=== PATIENT | female | born 1955 | race Caucasian/White ===

== ENCOUNTER 2019-10-22 02:04 | Outpatient (RCR) | payer OTHER, SELFPAY ==
[2019-10-08 07:37] LABS: Abs Immature Grans 0.24 k/cumm (0.0-0.09); Absolute Basophil Count 0.01 k/cumm (0.0-0.2); Absolute Monocyte Count 1.51 k/cumm (0.11-0.7); Absolute Neutrophil Count 11.18 k/cumm (1.2-6.7); Basophils % 0.1; Eosinophils % 0.5; HCT 32.1 % (36.0-46.0); HGB 10.4 g/dL (12.0-15.5); Immature Grans % 1.6 %; Lymphocytes % 12.9; Mean Corp. HGB Concentration 32.4 g/dL (32.0-36.0); Mean Corpuscular Hemoglobin 28.3 pg (27.0-33.0); Mean Corpuscular Volume 87.2 fL (80-95); Mean Platelet Volume 9.3 fL (8.0-11.0); Monocytes % 10.1; Neutrophils % 74.8; Platelet Count 451 x1000/uL (130-400); RBC 3.68 m/cumm (4.00-5.20); RBC Distribution Width 14.9 % (11.7-14.6); White Blood Cell Count 14.94 k/cumm (4.4-10.8)
[2019-10-08 07:53] LABS: ALT 29 U/L (14-59); AST 38 U/L (15-37); Absolute Eosinophil Count 0.07 k/cumm (0.0-0.7); Absolute Lymphocyte Count 1.93 k/cumm (1.2-3.4); Albumin 2.8 g/dL (3.4-5.0); Alkaline Phosphatase 137 U/L (46-116); Anion Gap 7.9 mmol/L (3-11); BUN 9 mg/dL (7-18); Bilirubin, Total 0.4 mg/dL (0.2-1.0); CO2 29.1 mmol/L (21.0-32.0); CREATININE 0.72 mg/dL (0.55-1.02); Calcium 8.6 mg/dL (8.5-10.1); Chloride 96 mmol/L (98-107); Glucose 100 mg/dL (74-106); LDH 961 U/L (81-234); Potassium 3.4 mmol/L (3.5-5.1); Sodium 133 mmol/L (136-145); Total Protein 6.5 g/dL (6.4-8.2)
[2019-10-08 08:02] LABS: Diff Comment Agrees w/ Instrument; Polychromasia Present
[2019-10-08] MEDS: Normal Saline Flush 10 ML SYR 30 ML IVP (09:03)
[2019-10-22] MEDS: Heparin 500 UNITS/5 ML SYRINGE IV (09:32)
[2019-10-22] MEDS: Normal Saline Flush 10 ML SYR 30 ML IVP (09:32)
[2019-10-22 09:49] LABS: ALT 14 U/L (14-59); AST 11 U/L (15-37); Albumin 3.1 g/dL (3.4-5.0); Alkaline Phosphatase 173 U/L (46-116); Anion Gap 10.9 mmol/L (3-11); BUN 5 mg/dL (7-18); Bilirubin, Total 0.2 mg/dL (0.2-1.0); CO2 26.1 mmol/L (21.0-32.0); CREATININE 0.61 mg/dL (0.55-1.02); Calcium 8.8 mg/dL (8.5-10.1); Chloride 101 mmol/L (98-107); Glucose 116 mg/dL (74-106); LDH 219 U/L (81-234); Potassium 3.4 mmol/L (3.5-5.1); Sodium 138 mmol/L (136-145); Total Protein 6.3 g/dL (6.4-8.2)
[2019-10-22 09:53] LABS: Abs Immature Grans 1.91 k/cumm (0.0-0.09); HCT 29.2 % (36.0-46.0); HGB 9.4 g/dL (12.0-15.5); Mean Corp. HGB Concentration 32.2 g/dL (32.0-36.0); Mean Corpuscular Hemoglobin 28.4 pg (27.0-33.0); Mean Corpuscular Volume 88.2 fL (80-95); Mean Platelet Volume 10.4 fL (8.0-11.0); Platelet Count 316 x1000/uL (130-400); RBC 3.31 m/cumm (4.00-5.20); White Blood Cell Count 19.23 k/cumm (4.4-10.8)
[2019-10-22 10:09] LABS: Absolute Lymphocyte Count 1.92 k/cumm (1.2-3.4); Absolute Neutrophil Count 15.38 k/cumm (1.2-6.7)
[2019-10-22 10:10] LABS: Absolute Monocyte Count 1.35 k/cumm (0.11-0.7); Anisocytosis 2+; Diff Comment Manual Differential; Nucleated RBC 1 /100WBC; Polychromasia Present
[2019-10-22 10:11] LABS: Poikilocytes 1+
== END 2019-10-27 23:59 | disposition home or self-care (01) ==
LOC: INF 02:04
PROVIDERS: PCP Registered Nurse; Visit Provider Internal Medicine Hematology & Oncology
DX: C82.00 Follicular lymphoma grade I, unspecified site (principal); Z45.2 Encounter for adjustment and management of vascular access device
CPT/HCPCS: 36591; 80053; 83615; 85025

== ENCOUNTER 2019-11-18 02:50 | Outpatient (RCR) | payer OTHER, SELFPAY ==
[2019-10-28] MEDS: Normal Saline Flush 10 ML SYR IVP (07:29)
[2019-10-28 07:39] LABS: Abs Immature Grans 0.77 k/cumm (0.0-0.09); Absolute Basophil Count 0.06 k/cumm (0.0-0.2); Absolute Monocyte Count 1.28 k/cumm (0.11-0.7); Absolute Neutrophil Count 14.55 k/cumm (1.2-6.7); Basophils % 0.3; Eosinophils % 0.1; HCT 30.7 % (36.0-46.0); HGB 9.6 g/dL (12.0-15.5); Immature Grans % 4.2 %; Lymphocytes % 9.8; Mean Corp. HGB Concentration 31.3 g/dL (32.0-36.0); Mean Corpuscular Hemoglobin 28.2 pg (27.0-33.0); Mean Platelet Volume 9.3 fL (8.0-11.0); Monocytes % 6.9; Neutrophils % 78.7; Platelet Count 411 x1000/uL (130-400); RBC 3.41 m/cumm (4.00-5.20); RBC Distribution Width 17.7 % (11.7-14.6); White Blood Cell Count 18.49 k/cumm (4.4-10.8)
[2019-10-28 07:50] LABS: ALT 15 U/L (14-59); AST 13 U/L (15-37); Albumin 3.2 g/dL (3.4-5.0); Alkaline Phosphatase 153 U/L (46-116); Anion Gap 8.6 mmol/L (3-11); BUN 6 mg/dL (7-18); Bilirubin, Total 0.3 mg/dL (0.2-1.0); CO2 28.4 mmol/L (21.0-32.0); CREATININE 0.65 mg/dL (0.55-1.02); Calcium 8.8 mg/dL (8.5-10.1); Chloride 101 mmol/L (98-107); Glucose 111 mg/dL (74-106); LDH 174 U/L (81-234); Potassium 3.9 mmol/L (3.5-5.1); Sodium 138 mmol/L (136-145); Total Protein 6.6 g/dL (6.4-8.2)
[2019-10-28 07:52] LABS: Absolute Eosinophil Count 0.02 k/cumm (0.0-0.7); Absolute Lymphocyte Count 1.81 k/cumm (1.2-3.4)
[2019-10-28 07:59] LABS: Anisocytosis 1+; Diff Comment Agrees w/ Instrument
[2019-11-18 08:06] LABS: Abs Immature Grans 0.04 k/cumm (0.0-0.09); Absolute Basophil Count 0.03 k/cumm (0.0-0.2); Absolute Eosinophil Count 0.04 k/cumm (0.0-0.7); Absolute Lymphocyte Count 0.91 k/cumm (1.2-3.4); Absolute Monocyte Count 0.85 k/cumm (0.11-0.7); Absolute Neutrophil Count 8.16 k/cumm (1.2-6.7); Basophils % 0.3; Eosinophils % 0.4; HGB 8.9 g/dL (12.0-15.5); Immature Grans % 0.4 %; Lymphocytes % 9.1; Mean Corpuscular Hemoglobin 30.1 pg (27.0-33.0); Mean Corpuscular Volume 91.2 fL (80-95); Mean Platelet Volume 9.4 fL (8.0-11.0); Monocytes % 8.5; Neutrophils % 81.3; Platelet Count 327 x1000/uL (130-400); RBC 2.96 m/cumm (4.00-5.20); RBC Distribution Width 20.5 % (11.7-14.6); White Blood Cell Count 10.03 k/cumm (4.4-10.8)
[2019-11-18 08:37] LABS: ALT 28 U/L (14-59); AST 14 U/L (15-37); Albumin 3.4 g/dL (3.4-5.0); Alkaline Phosphatase 122 U/L (46-116); Anion Gap 9.1 mmol/L (3-11); BUN 11 mg/dL (7-18); Bilirubin, Total 0.4 mg/dL (0.2-1.0); CO2 25.9 mmol/L (21.0-32.0); CREATININE 0.69 mg/dL (0.55-1.02); Chloride 97 mmol/L (98-107); Glucose 106 mg/dL (74-106); LDH 145 U/L (81-234); Potassium 4.4 mmol/L (3.5-5.1); Sodium 132 mmol/L (136-145); Total Protein 6.7 g/dL (6.4-8.2)
[2019-11-18] MEDS: Normal Saline Flush 10 ML SYR IVP (09:03)
== END 2019-11-27 23:59 | disposition home or self-care (01) ==
LOC: INF 02:50
PROVIDERS: PCP Registered Nurse; Visit Provider Internal Medicine Hematology & Oncology
DX: C82.00 Follicular lymphoma grade I, unspecified site (principal); Z45.2 Encounter for adjustment and management of vascular access device
CPT/HCPCS: 36591; 80053; 83615; 85025

== ENCOUNTER 2019-12-09 02:27 | Outpatient (RCR) | payer OTHER, SELFPAY ==
[2019-12-09] MEDS: Normal Saline Flush 10 ML SYR IVP (07:10)
[2019-12-09 07:32] LABS: Abs Immature Grans 0.16 10^3/uL (0.0-0.06); Basophils % 0.5; Eosinophils % 0.1; HCT 28.5 % (36.0-46.0); HGB 9.1 g/dL (11.2-15.7); Lymphocytes % 7.7; MCH 31.1 pg (27.0-33.0); MCHC 31.9 % (32.0-36.0); MCV 97.3 fL (80-95); MPV 9.3 fL (8.0-11.0); Monocytes % 9.7; Nucleated RBC 0 %; Platelet Count 270 10^3/uL (130-400); RBC 2.93 10^6/uL (3.93-5.22); RDW 22.2 % (11.7-14.6); RDW-SD 78.3 fL; WBC 15.52 10^3/uL (4.4-10.8)
[2019-12-09 07:51] LABS: ALT 19 U/L (14-59); AST 19 U/L (15-37); Albumin 3.3 g/dL (3.4-5.0); Alkaline Phosphatase 108 U/L (46-116); Anion Gap 6.6 mmol/L (3-11); BUN 6 mg/dL (7-18); Bilirubin, Total 0.3 mg/dL (0.2-1.0); CO2 27.4 mmol/L (21.0-32.0); CREATININE 0.57 mg/dL (0.55-1.02); Calcium 8.9 mg/dL (8.5-10.1); Chloride 99 mmol/L (98-107); Glucose 107 mg/dL (74-106); LDH 137 U/L (81-234); Sodium 133 mmol/L (136-145); Total Protein 6.6 g/dL (6.4-8.2)
[2019-12-09 07:55] LABS: Absolute Basophil Count 0.08 10^3/uL (0.0-0.2); Absolute Eosinophil Count 0.02 10^3/uL (0.0-0.7); Absolute Monocyte Count 1.51 10^3/uL (0.1-0.8); Absolute Neutrophil Count 12.57 10^3/uL (1.2-6.7)
[2019-12-09 08:00] LABS: Diff Comment RBC Morph Reviewed
[2019-12-09 08:01] LABS: Anisocytosis 2+; Hypochromasia 1+; Polychromasia Present
[2019-12-09 08:02] LABS: Poikilocytes 2+
== END 2019-12-28 23:59 | disposition home or self-care (01) ==
LOC: INF 02:27
PROVIDERS: PCP Registered Nurse; Visit Provider Internal Medicine Hematology & Oncology
DX: C82.08 Follicular lymphoma grade I, lymph nodes of multiple sites (principal); Z45.2 Encounter for adjustment and management of vascular access device
CPT/HCPCS: 36591; 80053; 83615; 85025

== ENCOUNTER 2020-01-20 07:30 | Outpatient (RCR) | payer OTHER, SELFPAY ==
[2019-12-30] MEDS: Normal Saline Flush 10 ML SYR IVP (07:22)
[2019-12-30 07:38] LABS: Absolute Basophil Count 0.04 10^3/uL (0.0-0.2); Absolute Eosinophil Count 0.02 10^3/uL (0.0-0.7); Absolute Lymphocyte Count 0.53 10^3/uL (1.2-3.4); Absolute Monocyte Count 0.68 10^3/uL (0.1-0.8); Absolute Neutrophil Count 4.76 10^3/uL (1.2-6.7); Basophils % 0.7; Eosinophils % 0.3; HCT 30.5 % (36.0-46.0); HGB 10.2 g/dL (11.2-15.7); Immature Grans % 1.6; Lymphocytes % 8.6; MCH 31.7 pg (27.0-33.0); MCHC 33.4 % (32.0-36.0); MCV 94.7 fL (80-95); MPV 9.8 fL (8.0-11.0); Monocytes % 11.1; Neutrophils % 77.7; Nucleated RBC 0 %; RBC 3.22 10^6/uL (3.93-5.22); RDW-SD 64.8 fL; WBC 6.13 10^3/uL (4.4-10.8)
[2019-12-30 07:41] LABS: ALT 138 U/L (14-59); AST 59 U/L (15-37); Albumin 3.4 g/dL (3.4-5.0); Alkaline Phosphatase 126 U/L (46-116); Anion Gap 8.2 mmol/L (3-11); BUN 8 mg/dL (7-18); Bilirubin, Total 0.4 mg/dL (0.2-1.0); CO2 27.8 mmol/L (21.0-32.0); CREATININE 0.59 mg/dL (0.55-1.02); Chloride 102 mmol/L (98-107); Glucose 97 mg/dL (74-106); LDH 143 U/L (81-234); Potassium 4.1 mmol/L (3.5-5.1); Sodium 138 mmol/L (136-145); Total Protein 6.3 g/dL (6.4-8.2)
[2019-12-30 07:51] LABS: Anisocytosis 1+; Diff Comment PLT Morph Reviewed; Platelet Count 129 10^3/uL (130-400)
[2020-01-20] MEDS: Normal Saline Flush 10 ML SYR IVP (07:15)
[2020-01-20 07:43] LABS: Abs Immature Grans 0.26 10^3/uL (0.0-0.06); Absolute Eosinophil Count 0.02 10^3/uL (0.0-0.7); Absolute Lymphocyte Count 1.54 10^3/uL (1.2-3.4); Absolute Monocyte Count 1.38 10^3/uL (0.1-0.8); Absolute Neutrophil Count 14.18 10^3/uL (1.2-6.7); Basophils % 0.5; Eosinophils % 0.1; HCT 31.8 % (36.0-46.0); HGB 10.5 g/dL (11.2-15.7); Immature Grans % 1.5; Lymphocytes % 8.8; MCH 32.9 pg (27.0-33.0); MCV 99.7 fL (80-95); MPV 10.1 fL (8.0-11.0); Monocytes % 7.9; Neutrophils % 81.2; Nucleated RBC 0 %; Platelet Count 181 10^3/uL (130-400); RBC 3.19 10^6/uL (3.93-5.22); RDW 17.4 % (11.7-14.6); RDW-SD 64.2 fL; WBC 17.46 10^3/uL (4.4-10.8)
[2020-01-20 07:44] LABS: Absolute Basophil Count 0.09 10^3/uL (0.0-0.2)
[2020-01-20 08:15] LABS: ALT 22 U/L (14-59); AST 19 U/L (15-37); Albumin 3.6 g/dL (3.4-5.0); Alkaline Phosphatase 130 U/L (46-116); Anion Gap 7.1 mmol/L (3-11); BUN 9 mg/dL (7-18); Bilirubin, Total 0.4 mg/dL (0.2-1.0); CO2 27.9 mmol/L (21.0-32.0); CREATININE 0.63 mg/dL (0.55-1.02); Chloride 100 mmol/L (98-107); Glucose 108 mg/dL (74-106); LDH 163 U/L (81-234); Sodium 135 mmol/L (136-145); Total Protein 6.8 g/dL (6.4-8.2); Uric Acid 5.2 mg/dL (2.6-6.0)
== END 2020-01-27 23:59 | disposition home or self-care (01) ==
LOC: INF 07:30
PROVIDERS: PCP Registered Nurse; Visit Provider Internal Medicine Hematology & Oncology
DX: C82.08 Follicular lymphoma grade I, lymph nodes of multiple sites (principal); Z45.2 Encounter for adjustment and management of vascular access device
CPT/HCPCS: 36591; 80053; 83615; 84550; 85025

== ENCOUNTER 2020-04-07 11:58 | Outpatient (CLI) | payer OTHER, SELFPAY ==
--- NOTE | 2020-04-07 | DI.CT_ITS ---
EXAM: CT ABD AORTA CTA W RUNOFF CLINICAL HISTORY: PERIPHERAL ARTERY DISEASE I73.9 TECHNIQUE: Axial CT angiography was performed with multi-slice acquisition and multi-planar and/or 3 D reconstructions. COMPARISON: No exams were available for comparison FINDINGS: CT angiography of the abdomen and pelvis was performed with additional ???runoff??? images of the low er extremities bilaterally. Images obtained through the lung bases are unremarkable. Visualized pulmonary arterial circulation a ppears normal. Thoracic aorta is of normal diameter throughout. No mass or adenopathy of the visual ized portions of the mediastinum. The liver and spleen are unremarkable in appearance as is the pancreas. Gallbladder and bile ducts a re CT normal. No focal renal abnormality. No hydronephrosis or nephrolithiasis. Unremarkable appea eduin of the adrenals. No focal bowel pathology. Unremarkable appearance of button reclaimer structures. No significant abdominal wall hernia. No significant abdominal or pelvic adenopathy. Abdominal aorta is of normal diameter throughout. There is diffuse heavily calcified plaque of the a bdominal aorta. The origins of the celiac trunk, superior mesenteric artery, and renal arteries bila terally show significant calcification but there does not appear to be a stenosis of greater than 50 percent of the luminal diameter of these vessels. The inferior mesenteric artery is intact. The common femoral arteries bilaterally are heavily calcified. There is a greater than 50 percent bi lateral luminal diameter stenosis of the common iliac arteries. The external iliac arteries bilaterally show dense atheromatous plaque and greater than 50 percent estefany carlton diameter stenosis over much of their course bilaterally. The distal left external iliac artery shows greater than 90 percent luminal diameter stenosis. There are bilateral occlusions of the prox imal superficial femoral arteries. Profundus femora arteries bilaterally are small but patent. Supe rficial femoral arteries are occluded to the level of the distal SFA bilaterally. There is reconstit ution of tiny popliteal arteries bilaterally. There is severe atheromatous change with multiple sten oses of greater than 90 percent luminal diameter of all 3 lower leg arteries bilaterally. 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 RADIATION DOSE DELIVERED: 737.18mGy.cm Total DLP
[2020-04-07] MEDS: Omnipaque 350 MG/ML 100 ML BTL IV (14:14)
[2020-04-07] MEDS: Normal Saline - Diluent 50 ML VIAL IV (14:15)
[2020-04-07] MEDS: Omnipaque 350 MG/ML 50 ML BTL IV (14:16)
== END 2020-04-07 12:18 ==
PROVIDERS: PCP Registered Nurse; Visit Provider Surgery
DX: I73.9 Peripheral vascular disease, unspecified (principal); I77.1 Stricture of artery
CPT/HCPCS: 75635; J3490; Q9967

== ENCOUNTER 2020-04-07 12:13 | Outpatient (RCR) | payer OTHER, SELFPAY ==
[2020-04-07] MEDS: Heparin 500 UNITS/5 ML SYRINGE IVP (12:10)
[2020-04-07] MEDS: Normal Saline Flush 10 ML SYR 30 ML IVP (12:10)
[2020-04-07 12:57] LABS: CREATININE 0.52 mg/dL (0.55-1.02)
== END 2020-04-28 23:59 | disposition home or self-care (01) ==
LOC: INF 12:13
PROVIDERS: Surgery; PCP Registered Nurse; Visit Provider Internal Medicine Hematology & Oncology
DX: I73.9 Peripheral vascular disease, unspecified (principal); Z45.2 Encounter for adjustment and management of vascular access device
CPT/HCPCS: 36591; 82565

== ENCOUNTER 2020-05-11 04:09 | Outpatient (RCR) | payer OTHER, SELFPAY | END 2020-05-29 23:59 | disposition home or self-care (01) | LOC: INF 04:09 | PROVIDERS: PCP Registered Nurse; Visit Provider Internal Medicine Hematology & Oncology | DX: Z53.9 Procedure and treatment not carried out, unspecified reason (principal) ==

== ENCOUNTER 2020-06-29 08:52 | Outpatient (RCR) | payer OTHER, SELFPAY ==
--- OUTSIDE RECORDS SUMMARY | 2020-06-29 08:55 | XMS_ITS ---
:1955 Author Care Team Providers Name Role Phone HEATH LEON MD General Surgeon [phone] BARBI SMART NP Primary Care Provider [phone] TRAVIS WOODALL MD Christmas Tree Grader [phone] Allergies Code Code System Name Reaction Severity Status Onset 776441 RxNorm Fosamax ? ? Active ? [id number] RxNorm Plavix Rash ? Active ? Notes: No seafood allergy. No co ntrast allergy. 03/10/20 verbal review with patient Medications Name Status Start Date Stop Date ? ? acyclovir 400 mg tablet Active ? Not avai lable allopurinol 300 mg tablet Completed ? 2019 Take 1 tablet every day by oral route. Aspir-81 mg tablet,delayed release Active ? Not available Take 1 tablet every day by oral route. atorvastatin 40 mg tablet Completed ? 2020 Take 1 tablet every day by oral route. atorvastatin 80 mg tablet Active ? Not av ailable Take 1 tablet every day by oral route for 90 days. Bactrim 400 mg-80 mg tablet Completed ? 12/29 Take 1 tablet every 12 hours by oral route for 10 days. Bactrim DS 800 mg-160 mg tablet Completed ? 03/10/2020 1 (one) Tablet Tablet: two times daily Benadryl Allergy 25 mg tablet Completed ? Take 2 tablets every 4 hours by oral route as needed. bupropion HCl XL 150 mg 24 hr Completed ? tablet, extended release Calcium 500 + D 500 mg (1,250 mg)-200 unit tablet Active ? Not available Take 1 tablet twice a day by oral route. Chantix 1 mg tablet Completed ? 03/11/2018 Take 1 tablet twice a day by oral route. Chantix Starting Month Box 0.5 Completed ? 0 12/26/2017 mg (11)-1 mg (42) tablets in dose pack Ciloxan 0.3 % eye ointment Completed ? 01/21 Cipro 500 mg tablet Completed 05/03/2015 05/06/2015 1 (one) Tablet: every twelve hours ciprofloxacin 250 mg tablet Completed ? 04/2019 Colace 100 mg capsule Completed ? 03/11/2018 Take 2 capsules every day by oral route. Compazine 10 mg tablet Active ? Not avail able Take 1 tablet every 6 hours by oral route as needed. Dexilant 30 mg capsule, delayed Completed ? 06/15/2019 release Eliquis 5 mg tablet Active ? Not availabl e enalapril maleate 2.5 mg tablet Active ? Not available Take 1 tablet every day by oral route. esomeprazole magnesium 40 mg capsule,delayed release Completed 06/21/2017 06/21/2017 1 (one) Capsule: daily famotidine 20 mg tablet Completed ? 11/13/19 20 Take 1 tablet every day by oral route. gabapentin 300 mg capsule Active ? Not av ailable Take 2 capsules twice a day. Take 3 capsules at Bedtime hydroxyzine HCl 25 mg tablet Completed 07/17/2012 1 Tablet: three times daily Keflex 500 mg capsule Completed ? 03/03/2020 Take 1 capsule every 6 hours by oral route. lansoprazole 30 mg capsule,delayed release Active ? Not available Take 1 capsule(s) every day by oral route.] lidocaine-prilocaine 2.5 %-2.5 % Completed ? 04/15/2020 topical cream nitrofurantoin Active ? Not available monohydrate/macrocrystals 100 mg capsule metoprolol tartrate 25 mg tablet Active ? Not available Take 1 tablet twice a day by oral route. 1 tablet in AM and 1 tablet at Noon metoprolol tartrate 50 mg tablet Active ? Not available Take 1 tablet 3 times a day by oral route. 1 tablet in AM, 1 tablet at Noon, 1 tablet in PM Miralax 17 gram/dose oral powder Active 10/22/2019 Not available Take 17 g every day by oral route. nystatin 100,000 unit/mL oral suspension Completed ? 04/15/2020 Take 5 mL 4 times a day by oral route. omeprazole 40 mg capsule,delayed release Completed 015 05/21/[address]: daily oxycodone 5 mg capsule Completed ? 0 Take 1 capsule every 4 hours by oral route as needed. oxycodone 5 mg tablet Completed ? 03/10/2020 pantoprazole 40 mg Active ? Not available tablet,delayed release potassium chloride ER 20 mEq tablet,extended release Completed ? 01/22/2020 Take 2 tablets every day by oral route. prednisone 20 mg tablet Completed ? 01/22/20 20 Pyridium 100 mg tablet Completed 08/20/2013 4 1 (one) Tablet: three times daily rabeprazole 20 mg tablet,delayed release Completed ? 06/05/2019 Take 1 tablet every day by oral route. Senna S 50 mg-8.6 mg tablet Completed ? 05/2020 Take 1 tablet every day by oral route as needed. simvastatin 40 mg tablet Completed 02/07/2016 017 1 (one) Tablet: bedtime Sleep Aid (diphenhydramine) Completed ? 12/29 1 at bedtime tramadol 50 mg tablet Completed ? 06/28/2020 Take 0.5 tablets every 6 hours by oral route as needed. Vasotec 10 mg tablet Completed ? 04/15/2020 Take 1 tablet every day by oral route. Vitamin D3 50 mcg (2,000 unit) capsule Completed ? 11/14/2017 Take 1 capsule every day by oral route. warfarin 5 mg tablet Completed ? 11/26/2019 azithromycin 250 mg tablet Active ? Not a vailable Notes: 03/10/2020 patient provid ed a current medication list for review Problems Name Status Onset Date Source ? Abdominal Bloating Unknown 03/02/2019 ? Long-term Current Use of Anticoagulant Active 0 ? Skin Lesion Active 05/02/2020 ? Malignant Lymphoma Active ? History Hyperlipidemia Active ? History Nicotine Dependence Active ? History Insomnia Active ? History Essential Hypertension Unknown ? History Hypertensive Disorder Active ? History Atrial Fibrillation Active ? History Peripheral Arterial Occlusive Disease Active ? History Gastroesophageal Reflux Disease Active ? History Blood in Urine Unknown ? History Fibrocystic Disease of Breast Active ? Hi story Epidermoid Cyst of Skin Unknown ? History Osteochondropathy Active ? History Chest Pain Active ? History Abnormal Glucose Level Active ? History Inconclusive Evaluation Finding Unknown ? History Abnormal Findings on Diagnostic Active ? History Imaging of Breast Placentography Abnormal Active ? History Thyroid Function Tests Abnormal Unknown ? History Influenza Vaccine Needed Active ? History Closed Fracture of Lateral Malleolus Active ? History of Left Fibula Procedures Date Name Performed by ? 04/03/2019 EGD/Endoscopy Information not avai lable Notes: hiatal hernia 04/03/2019 Colonoscopy Information not avai lable Notes: incomplete scope. diverticulos is, colon polyp. 04/04/10 09/04/2013 Arthroplasty Information not avai lable Notes: Arthroplasty left 5th digit (Hammertoe). Exostectomy over left 4th lateral proximal interphalangeal joint. 01/27/2009 Angioplasty Information not avai lable Notes: right iliac system 04/29/1977 Tubal Ligation Information not avai lable ? Appendectomy Information not avai lable 07/01/2018 US, Echocardiogram [facility] (Internal) [address] [address] (Work Place) 09/04/2018 XR, Abdomen [facility] (Internal) [address] [place] [address] (Work Place) 09/25/2018 MAMMO, Screening, Tomosynthesis, [facility] Radiology (Internal) Bilateral [address] [address] (Work Place) 04/03/2019 XR, Colon, W/ Air Contrast [facility] Radiology (Internal) [address] [place] [address] (Work [address]) 08/21/2019 XR, Clavicle [facility] (Internal) [address] [place] [address] (Work Place) 03/10/2020 MAMMO, Screening, Tomosynthesis, [facility] (Internal) Bilateral [address] [address] (Work [address]) 05/02/[address] [facility] Cardio pulmonary [address] [place] [address] (Work [address]) 06/09/2020 NM, Myocardial Perfusion Scan, W/ [facility] (Internal) Stress [address] [place] [place] [address] (Work [address]) 06/28/2020 US, Echocardiogram, Transthoracic, [facility] Radiology (Internal) Complete [address], [place] [address] (Work Place) 06/28/[address] [facility] Cardio pulmonary [address], [place] [address] (Work Place) Results Lab Results Date Name Specimen Result Interpretation Description Value Range Status Address ? 06/20/2020 T4, Free, S ? Ft4 0.99 NG/dL 0.78-2.19 Fin al [place] Serum NG/dL [facility] L ab (Internal) : [address] 06/20/2020 TSH, Serum S ? Tsh 0.68 0.47-4.68 Final [place] or Plasma u[IU]/mL u[IU]/mL [facility] (Internal) : [address] 06/20/2020 T3, Total, S ? T3, 138 NG/dL 97-169 Final [place] Serum Total NG/dL [facility] L ab (Internal) : [address] 06/20/2020 Thyroglobul S ? Thyrogl 17 U/mL <=60 U/mL Fi [facility] in Ab, obulin [facility] Serum Antibody Hospital Lab (Internal) : [address] ? ? S ? Thyrope 33 U/mL <=60 U/mL Final Nort h roxidase [facility] Antibody Hospital Lab (Internal) : [address] 06/07/2020 BMP, Serum S High g/r 135 mg/dL 74-106 Final [place] or Plasma mg/dL [facility] L ab (Internal) : [address] ? ? S ? Bun 8 mg/dL 7-17 mg/dL Final [facility] L ab (Internal) : [address] ? ? S Low Crea 0.50 mg/dL 0.52-1.04 Final [facility] th mg/dL [facility] L ab (Internal) : [address] ? ? S ? Ca 9.4 mg/dL 8.4-10.2 Final [place] mg/dL [facility] L ab (Internal) : [address] ? ? S ? Na 139 mmol/L 137-145 Final [place] mmol/L [facility] L ab (Internal) : [address] ? ? S ? K 3.6 mmol/L 3.5-5.1 Final [place] mmol/L [facility] ([facility] : [address] ? ? S ? Cl 99 mmol/L 98-107 Final [place] mmol/L [facility] Hospital L ab (Internal) : [address] ? ? S ? Tco2 28.0 22.0-30.0 Final [place] mmol/L mmol/L [facility] (Internal) : [address] 06/07/2020 TSH, Serum S Low Tsh 0.43 0.47-4.68 Final [place] or Plasma u[IU]/mL u[IU]/mL [facility] [address] 06/07/2020 Magnesium, S ? mg 1.8 mg/dL 1.6-2.3 Final [place] QN, Serum mg/dL [facility] or Plasma Hospita l Lab (Internal) : [address] 03/10/2020 Drug UR ? Thc negative neg (50 Final Nor th Screen, NG/mL NG/mL) [facility] Urine NG/mL Hospital L [facility] (Internal) : [address] ? ? UR ? Pcp negative neg (25 Final [place] NG/mL) [facility] (Internal) : [address] ? ? UR ? Laron negative neg (150 Final [place] NG/mL) [facility] (Internal[facility] : [address] t ? ? UR ? Met negative neg (500 Final [place] NG/mL) [facility] (Internal) : [address] t ? ? UR ? Opi negative neg (100 Final [place] NG/mL) [facility] (Internal) : [address] ? ? UR ? Amp negative neg (500 Final [place] NG/mL) [facility] (Internal) : [address] t ? ? UR ? Bzo negative neg (150 Final [place] NG/mL) [facility] (Internal) : [address] ? ? UR ? Tca negative neg (300 Final [place] NG/mL) [facility] (Internal) : [address] ? ? UR ? Mtd negative neg (200 Final [place] NG/mL) [facility] (Internal[facility] : [address] ? ? UR ? Bar negative neg (200 Final [place] NG/mL) [facility] (Internal) : [address] ? ? UR ? Oxy negative neg (100 Final [place] NG/mL) [facility] (Internal) : [address] ? ? UR ? Ppx negative neg (300 Final [place] NG/mL) [facility] Hospital L ab (Internal) : [address] ? ? UR ? Bup negative neg (10 Final [place] NG/mL) [facility] Hospital L ab (Internal) : [address] t 01/29/2020 CBC W/ Auto BLD Low Wbc 4.0 5.0-10.0 Final [place] Diff 10*3/uL 10*3/uL [facility] (Internal) : [address] t ? ? BLD Low Rbc 1.60 4.10-5.30 Final [place] 10*6/uL 10*6/uL [facility] Hospital L ab (Internal) : [address] t ? ? BLD CRITICA Hgb 5.2 g/dL 12.0-16.0 Final Nort h L LOW g/dL [facility] Hospital L ab (Internal) : [address] t ? ? BLD CRITICA Hct 15.7 % 37.0-47.0 Final [facility] LOW % [facility] (Internal) : [address] t ? ? BLD High Mcv 98.1 fL 80.0-96.0 Final [place] fL [facility] Hospital L ab (Internal) : [address] ? ? BLD High Mch 32.5 pg 26.0-32.0 Final [place] pg [facility] Hospital L ab (Internal) : [address] t ? ? BLD ? Mchc 33.1 g/dL 31.0-35.0 Final Nort h g/dL [facility] Hospital L ab (Internal) : [address] t ? ? BLD High Rdw 15.6 % 11.5-14.5 Final [facility] Hospital L ab (Internal) : [address] t ? ? BLD CRITICA Plt 17 10*3/uL 130-450 Final Nort h L LOW 10*3/uL [facility] (Internal) : [address] t 01/29/2020 Lactic S High La 2.2 mmol/L 0.7-2.1 Final N orth Acid, Blood mmol/L Count ry Hospital L ab (Internal) : [address] t 01/29/2020 CMP, Serum S High g/r 131 mg/dL 74-106 Final [place] or Plasma mg/dL [facility] Hospital L ab (Internal) : [address] ? ? S ? Bun 14 mg/dL 7-17 mg/dL Final Nort h [facility] Hospital L ab (Internal) : [address] t ? ? S ? Crea 0.60 mg/dL 0.52-1.04 Final Nor th mg/dL [facility] (Internal) : [address] ? ? S ? Ca 8.5 mg/dL 8.4-10.2 Final [place] mg/dL [facility] Hospital L ab (Internal) : [address] ? ? S Low Na 133 mmol/L 137-145 Final [place] mmol/L [facility] Hospital L ab (Internal) : [address] ? ? S ? K 3.5 mmol/L 3.5-5.1 Final [place] mmol/L [facility] Hospital L ab (Internal) : [address] ? ? S Low Cl 96 mmol/L 98-107 Final [place] mmol/L [facility] Hospital L ab (Internal) : [address] ? ? S ? Tco2 24.0 22.0-30.0 Final [place] mmol/L mmol/L [facility] (Internal) : [address] ? ? S Low Tp 5.7 g/dL 6.3-8.2 Final [place] g/dL [facility] Hospital L ab (Internal) : [address] t ? ? S Low Alb 3.3 g/dL 3.5-5.0 Final [facility] g/dL [facility] (Internal) : [address] ? ? S ? Tbil 0.7 mg/dL 0.2-1.3 Final [place] mg/dL [facility] ab (Internal) : [address] ? ? S ? Alp 85 U/L 38-126 U/L Final [facility] ab (Internal) : [address] ? ? S ? Alt 13 U/L 9-52 U/L Final [place] (Sgpt) [facility] L ab (Internal) : [address] ? ? S Low Ast 13 U/L 14-36 U/L Final [place] (Sgot) [facility] ab (Internal) : [address] 01/29/2020 Differentia BLD ? Polys 66 % 40-75 % Final [facility] Manual, Countr y Blood Hospital L ab (Internal) : [address] ? ? BLD ? Bands 1 % 0-5 % Final [facility] ab (Internal) : [address] ? ? BLD Low Lymphs 12 % 20-50 % Final [facility] ab (Internal) : [address] ? ? BLD High Levy 14 % 2-10 % Final [facility] ab (Internal) : [address] ? ? BLD ? Eos 1 % 0-6 % Final [facility] ab (Internal) : [address] ? ? BLD ? Baso 0 % 0-1 % Final [facility] ab (Internal) : [address] ? ? BLD ? Atyp 0 % ? Final [facility] ab (Internal) : [address] ? ? BLD High Young 6 % 0-0 % Final [facility] ab (Internal) : [address] ? ? BLD ABNORMA Plts, low adequate Final [facility] [address] ? ? BLD ABNORMA RBC abnormal normal [facility] (Internal[facility] : [address] ? ? BLD ? Aniso small ? Final [facility] ab (Internal) : [address] ? ? BLD ? Dohle occasional ? Final [facility] (Internal) : [address] ? ? BLD ? Hypo small ? Final [facility] L ab (Internal) : [address] ? ? BLD ? Toxic small ? Final [facility] Hospital L ab (Internal) : [address] ? ? BLD ? Teardro occasional ? Final [facility] Hospital L ab (Internal) : [address] [facility] 01/29/2020 Neutrophil BLD ? Anc-man 2.71 ? Final [place] Count, ual 10*3/uL [facility] Absolute Hospital Lab (Anc), (Internal) : Blood [address] [facility] 01/29/2020 Nlr-manual BLD High Nlr - 5.58 0.00-3.20 Final [facility] Hospital L ab (Internal) : [address] [facility] 01/29/2020 Crossmatch, BLD ? X-match complete ? Sana bourne [place] Lrc, # , 2 U [facility] Hospital L ab (Internal) : [address] [facility] 01/29/2020 Type + BLD ? Abo O ? Final [facility] Blood Hospital L ab (Internal) : [address] ? ? BLD ? Rh positive ? Final [facility] L ab (Internal) : [address] ? ? BLD ? Ab Scrn negative negative Final [facility] L ab (Internal) : [address] 01/29/2020 Ldh, Serum S Low Ldh 305 U/L 313-618 Final [place] or Plasma U/L [facility] L ab (Internal) : [address] 01/29/2020 Urinalysis, UR ? UA-colo yellow pale Final [place] Dipstick, r yellow [facility] L ab Micro (Internal) : [address] ? ? UR ? UA-appe clear clear Final [facility] Hospital L ab (Internal) : [address] ? ? UR ? UA-spec <=1.005 1.003-1.03 Final [facility] Grav 5 [facility] Hospital L ab (Internal) : [address] ? ? UR ? UA-pH 5.5 [pH] 4.6-8.0 Final [place] [pH] [facility] (Internal) : [address] ? ? UR ? UA-leuk negative negative Final Nort h Est [facility] (Internal) : [address] ? ? UR ABNORMA UA-nitr positive negative Final Nor th L ite [facility] (Internal) : [address] ? ? UR ? UA-prot negative negative Final Nort h [facility] (Internal) : [address] [place] ? ? UR ? UA-gluc negative negative Final Nort h [facility] (Internal) : [address] ? ? UR ? UA-keto negative negative Final Nort h [facility] (Internal) : [address] [place] ? ? UR ? UA-urob normal normal Final [facility] (Internal) : [address] ? ? UR ? UA-bili negative negative Final Nort [facility] (Internal) : [address] [place] ? ? UR ABNORMA UA-bloo moderate negative Final Nor th L d [facility] (Internal) : [address] 01/29/2020 Urinalysis, UR ? UA-WBC 0-3 [hpf] 0-3 [hpf] F inal [place] Microscopic Count [facility] (Internal) : [address] ? ? UR ? UA-RBC 0-2 [hpf] 0-2 [hpf] Final Nor [facility] (Internal) : [address] ? ? UR ABNORMA UA-bact many [hpf] none seen Final [facility] eria [hpf] [facility] (Internal) : [address] ? ? UR ? UA-epit none seen none seen Final No rth helial [hpf] [hpf] [facility] (Internal) : [address] ? ? UR ? UA-mucu none seen none seen Final No rth s [hpf] [hpf] [facility] (Internal) : [address] 01/29/2020 Culture UR ? Final microbiolo ? Final N orth ([place] gy results Count ry Count), Hospital Lab Urine (Internal) : [address] 11/26/2019 INR, Blood BLD ? Inr Poc 1.2 ? Final [facility] L ab (Internal) : [address] 11/19/2019 INR, Blood BLD ? Inr Poc 1.9 ? Final [facility] ab (Internal) : [address] 11/16/2019 INR, Blood BLD ? Inr Poc 1.7 ? Final [facility] ab (Internal) : [address] 11/13/2019 INR, Plasma ? Inr 2.1 ? ? 11/12/2019 INR, Plasma ? Inr 1.8 ? ? 11/11/2019 INR, Plasma ? Inr 1.4 ? ? 11/06/2019 INR, Blood BLD ? Inr Poc 1.2 ? Final [facility] ab (Internal) : [address] 11/03/2019 INR, Blood BLD ? Inr Poc 1.4 ? Final [facility] L ab (Internal) : [address] t 11/03/2019 Creatinine, UR ? Vol, 2220 mL ? Final [place] 24-Hour 24HR U [facility] Hospital L ab (Internal) : [address] ? ? UR ? Crea, U 29 mg/dL 3-125 Final [place] mg/dL [facility] L ab (Internal) : [address] ? ? UR Low Crea, 091 144-1392 Final [place] 24HR U mg/24HR mg/24HR [facility] Hospital L ab (Internal) : [address] 10/29/2019 INR, Blood BLD ? Inr Poc 2.7 ? Final [facility] L ab (Internal) : [address] 10/23/2019 INR, Blood BLD ? Inr Poc 1.9 ? Final [facility] ab (Internal) : [address] 10/12/2019 INR, Blood BLD ? Inr Poc 1.9 ? Final [facility] ab (Internal) : [address] 10/09/2019 INR, Blood BLD ? Inr Poc 2.2 ? Final [facility] ab (Internal) : [address] 09/04/2019 INR, Blood BLD ? Inr Poc 3.8 ? Final [facility] ab (Internal) : [address] 08/28/2019 INR, Blood BLD ? Inr Poc 2.0 ? Final [facility] ab (Internal) : [address] 08/24/2019 INR, Blood BLD ? Inr Poc 2.7 ? Final [facility] ab (Internal) : [address] 08/21/2019 INR, Blood BLD ? Inr Poc 3.1 ? Final [facility] ab (Internal) : [address] 08/21/2019 Urinalysis, UR ? UA-colo yellow pale Final [place] Dipstick, r yellow [facility] ab Micro (Internal) : [address] ? ? UR ? UA-appe clear clear Final [facility] ab (Internal) : [address] ? ? UR ? UA-gluc negative negative Final Nort [facility] ab (Internal) : [address] ? ? UR ? UA-bili negative negative [facility] ab (Internal[facility] : [address] ? ? UR ? UA-keto negative negative Final Nort [facility] ab (Internal) : [address] ? ? UR ? UA-spec 1.010 1.003-1.03 Final Nort Grav [address] [place] [address] ab (Internal) : [address] ? ? UR ABNORMA UA-bloo small negative Final [facility] ab (Internal) : [address] ? ? UR ? UA-pH 6.5 [pH] 4.6-8.0 Final [place] [pH] [facility] ab (Internal) : [address] ? ? UR ? UA-prot negative negative Final Nort [facility] ab (Internal) : [address] ? ? UR ? UA-urob normal normal Final [facility] ab (Internal) : [address] ? ? UR ? UA-nitr negative negative Final Nort h ite [facility] ab (Internal) : [address] ? ? UR ABNORMA UA-leuk small negative Final [facility] ab (Internal) : [address] 08/21/2019 Urinalysis, UR ABNORMA UA-WBC 25-50 0-3 [hpf] Fin al [place] Microscopic L [hpf] Count Hospital L ab (Internal) : [address], [address] ? ? UR ? UA-RBC 0-2 [hpf] 0-2 [hpf] Final Nor th [facility] ab (Internal) : [address] ? ? UR ABNORMA UA-bact moderate none seen Final No rth L eria [hpf] [hpf] [facility] ab (Internal) : [address] ? ? UR ABNORMA UA-epit moderate none seen Final No rth L helial [hpf] [hpf] [facility] ab (Internal) : [address] ? ? UR ? UA-mucu none seen none seen Final No rth s [hpf] [hpf] [facility] ab (Internal) : [address] ? ? UR ? Clue moderate ? Final [facility] Cells [hpf] [facility] ab (Internal) : [address] 08/21/2019 Culture UR ? Final microbiolo ? Final N orth ([place] gy results Count ry Count), Hospital Lab Urine (Internal) : [address] 08/10/2019 INR, Blood BLD ? Inr Poc 2.9 ? Final [facility] ab (Internal) : [address] t 07/13/2019 INR, Blood BLD ? Inr Poc 2.1 ? Final [facility] ab (Internal) : [address] t 06/18/2019 INR, Blood BLD ? Inr Poc 2.6 ? Final [facility] ab (Internal) : [address] t 06/04/2019 INR, Blood BLD ? Inr Poc 2.3 ? Final [facility] ab (Internal) : [address] t 05/19/2019 INR, Blood BLD - Inr Poc 2.3 ? Final [facility] ab (Internal) : [address] 04/20/2019 INR, Blood BLD - Inr Poc 2.2 ? Final [facility] ab (Internal) : [address] 04/03/2019 Pathology TISS - Report (see ? Final No rth Study below) [facility] L ab (Internal) : [address] 03/18/2019 Ldh, Serum S - Ldh 359 U/L [id number] Final [place] or Plasma U/L [facility] ab (Internal) : [address] 03/18/2019 CMP, Serum S - g/r 101 mg/dL 74-106 Final [place] or Plasma mg/dL [facility] ab (Internal) : [address] t ? ? S - Bun 9 mg/dL 7-17 mg/dL Final [facility] ab (Internal) : [address] ? ? S - Crea 0.70 mg/dL 0.52-1.04 Final [place] th mg/dL [facility] L ab (Internal) : [address] ? ? S - Ca 8.8 mg/dL 8.4-10.2 Final [place] mg/dL [facility] ab (Internal) : [address] ? ? S Low Na 136 mmol/L 137-145 Final [place] mmol/L [facility] ab (Internal) : [address] ? ? S - K 3.8 mmol/L 3.5-5.1 Final [place] mmol/L [facility] ab (Internal) : [address] t ? ? S - Cl 100 mmol/L 98-107 Final [place] mmol/L [facility] ab (Internal) : [address] ? ? S - Tco2 28.0 22.0-30.0 Final [place] mmol/L mmol/L [facility] ab (Internal) : [address] ? ? S - Tp 7.0 g/dL 6.3-8.2 Final [place] g/dL [facility] ab (Internal) : [address] t ? ? S - Alb 3.8 g/dL 3.5-5.0 Final [place] g/dL [facility] L ab (Internal) : [address] t ? ? S - Tbil 0.3 mg/dL 0.2-1.3 Final [place] mg/dL [facility] L ab (Internal) : [address], [place] t ? ? S - Alp 82 U/L 38-126 U/L Final [facility] L ab (Internal) : [address] t ? ? S - Alt 15 U/L 9-52 U/L Final [place] (Sgpt) [facility] ab (Internal) : [address] t ? ? S - Ast 22 U/L 14-36 U/L Final [place] (Sgot) [facility] ab (Internal) : [address] 03/18/2019 CBC W/ Auto BLD - Wbc 9.0 5.0-10.0 Final [place] Diff 10*3/uL 10*3/uL [facility] ab (Internal) : [address] ? ? BLD - Rbc 4.37 4.10-5.30 Final [place] 10*6/uL 10*6/uL [facility] ab (Internal) : [address] [place] ? ? BLD - Hgb 12.9 g/dL 12.0-16.0 Final Nort h g/dL [facility] ab (Internal) : [address] ? ? BLD - Hct 39.0 % 37.0-47.0 Final [facility] L ab (Internal) : [address] t ? ? BLD - Mcv 89.2 fL 80.0-96.[address] [facility] L ab (Internal) : [address] ? ? BLD - Mch 29.5 pg 26.0-32.0 Final [place] pg [facility] ab (Internal) : [address] t ? ? BLD - Mchc 33.1 g/dL 31.0-35.0 Final Nort [facility] g/dL [facility] ab (Internal) : [address] ? ? BLD - Rdw 14.0 % 11.5-14.5 Final [facility] ab (Internal) : [address] [place] t ? ? BLD - Plt 232 130-450 Final [place] 10*3/uL 10*3/uL [facility] ab (Internal) : [address], [place] ? ? BLD - Anc 6.47 ? Final [place] 10*3/uL [facility] ab (Internal) : [address], [place] ? ? BLD - Neutro 72.4 % 40.0-75.0 Final [facility] L ab (Internal) : [address], [place] ? ? BLD Low Lymph 19.2 % 20.0-50.0 Final [facility] L ab (Internal) : [address] t ? ? BLD - Levy 6.8 % 2.0-10.0 % Final [facility] ab (Internal) : [address] t ? ? BLD - Eos 1.0 % 1.0-6.0 % Final [facility] ab (Internal) : [address] ? ? BLD - Baso 0.3 % 0.0-1.0 % Final [facility] ab (Internal) : [address] t ? ? BLD - Ig 0.3 % 0.0-0.9 % Final [facility] ab (Internal) : [address] 03/02/2019 INR, Blood BLD - Inr Poc 2.7 ? Final [facility] ab (Internal) : [address] 03/02/2019 Pap Test, MISC - Hpv see report ? Final [place] [facility] [address] t ? ? MISC - Pap see report ? Final [facility] ab (Internal) : [address] ? ? MISC - Report (added) ? Corrected [facility] ab (Internal) : [address] 01/29/2019 INR, Blood BLD - Inr Poc 2.8 ? Final [facility] ab (Internal) : [address] 01/12/2019 Fecal ? No ? ? ? Occult observat Blood, ion Stool recorded . 01/08/2019 INR, Blood BLD - Inr Poc 3.1 ? Final [facility] ab (Internal) : [address], [facility] t 12/12/2018 INR, Blood BLD - Inr Poc 2.5 ? Final [facility] ab (Internal) : [address] [facility] 11/27/2018 INR, Blood BLD - Inr Poc 2.9 ? Final [facility] ab (Internal) : [address] [facility] 11/06/2018 INR, Blood BLD - Inr Poc 3.1 ? Final [facility] ab (Internal) : [address] [facility] t 10/23/2018 INR, Blood BLD - Inr Poc 2.1 ? Final [facility] ab (Internal) : [address] [facility] t 09/25/2018 INR, Blood BLD - Inr Poc 2.7 ? Final [facility] ab (Internal) : [address] [facility] t 09/19/2018 INR, Blood BLD - Inr Poc 2.1 ? Final [facility] ab (Internal) : [address] [facility] 09/11/2018 INR, Blood BLD - Inr Poc 3.7 ? Final [facility] ab (Internal) : [address] [facility] t 09/04/2018 INR, Blood BLD - Inr Poc 2.9 ? Final [facility] ab (Internal) : [address] [facility] t 09/01/2018 INR, Blood BLD - Inr Poc 3.1 ? Final [facility] ab (Internal) : [address] t 09/01/2018 Ldh, Serum S - Ldh 387 U/L [id number] Final [place] or Plasma U/L [facility] ab (Internal) : [address] t 09/01/2018 CMP, Serum S - g/r 98 mg/dL 74-106 Final [place] or Plasma mg/dL [facility] ab (Internal) : [address] t ? ? S - Bun 11 mg/dL 7-17 mg/dL Final Nort h [facility] ab (Internal) : [address] t ? ? S Low Crea 0.50 mg/dL 0.52-1.04 Final [facility] mg/dL [facility] (Internal) : [address] t ? ? S - Ca 9.0 mg/dL 8.4-10.2 Final [place] mg/dL [facility] ab (Internal) : [address] t ? ? S - Na 137 mmol/L 137-145 Final [place] mmol/L [facility] ab (Internal) : [address] t ? ? S - K 3.6 mmol/L 3.5-5.1 Final [place] mmol/L [facility] ab (Internal) : [address] t ? ? S - Cl 102 mmol/L 98-107 Final [place] mmol/L [facility] ab (Internal) : [address] t ? ? S - Tco2 27.0 22.0-30.0 Final [place] mmol/L mmol/L [facility] ab (Internal) : [address] t ? ? S - Tp 7.1 g/dL 6.3-8.2 Final [place] g/dL [facility] ab (Internal) : [address] t ? ? S - Alb 3.8 g/dL 3.5-5.0 Final [place] g/dL [facility] ab (Internal) : [address] t ? ? S - Tbil 0.4 mg/dL 0.2-1.3 Final [place] mg/dL [facility] ab (Internal) : [address] t ? ? S - Alp 82 U/L 38-126 U/L Final [facility] ab (Internal) : [address] t ? ? S - Alt <10 U/L 9-52 U/L Final [place] (Sgpt) [facility] ab (Internal) : [address] t ? ? S - Ast 22 U/L 14-36 U/L Final [place] (Sgot) [facility] ab (Internal) : [address] 09/01/2018 CBC W/ Auto BLD - Wbc 9.9 5.0-10.0 Final [place] Diff 10*3/uL 10*3/uL [facility] ab (Internal) : [address] ? ? BLD - Rbc 4.66 4.10-5.30 Final [place] 10*6/uL 10*6/uL [facility] ab (Internal) : [address] ? ? BLD - Hgb 13.4 g/dL 12.0-16.0 Final Nort [place] g/dL [facility] ab (Internal) : [address] [place] ? ? BLD - Hct 43.3 % 37.0-47.0 Final [facility] L ab (Internal) : [address] [place] ? ? BLD - Mcv 92.9 fL 80.0-96.[address] [facility] ab (Internal) : [address] [place] ? ? BLD - Mch 28.8 pg 26.0-32.0 Final [facility] L ab (Internal) : [address] [place] ? ? BLD Low Mchc 30.9 g/dL 31.0-35.0 Final Nort h g/dL [facility] ab (Internal) : [address] ? ? BLD - Rdw 14.4 % 11.5-14.5 Final [facility] L ab (Internal) : [address] [place] ? ? BLD - Plt 196 130-450 Final [place] 10*3/uL 10*3/uL [facility] ab (Internal) : [address] [place] ? ? BLD - Anc 7.11 ? Final [place] 10*3/uL [facility] ab (Internal) : [address] [place] ? ? BLD - Neutro 72.2 % 40.0-75.0 Final [facility] L ab (Internal) : [address] [place] ? ? BLD Low Lymph 19.5 % 20.0-50.0 Final [facility] L ab (Internal) : [address] ? ? BLD - Levy 6.6 % 2.0-10.0 % Final [facility] ab (Internal) : [address] ? ? BLD - Eos 1.0 % 1.0-6.0 % Final [facility] ab (Internal) : [address] ? ? BLD - Baso 0.4 % 0.0-1.0 % Final [facility] ab (Internal) : [address] t ? ? BLD - Ig 0.3 % 0.0-0.9 % Final [facility] ab (Internal) : [address] t 08/12/2018 INR, Blood BLD - Inr Poc 2.8 ? Final [facility] ab (Internal) : [address], [place] 07/31/2018 INR, Blood BLD - Inr Poc 1.7 ? Final [facility] ab (Internal) : [address] t 07/22/2018 INR, Blood BLD - Inr Poc 1.5 ? Final [facility] ab (Internal) : [address] t 07/16/2018 INR, Blood BLD - Inr Poc 1.8 ? Final [facility] ab (Internal) : [address] 06/18/2018 INR, Blood BLD - Inr Poc 2.3 ? Final [facility] ab (Internal) : [address] 05/12/2018 INR, Blood BLD - Inr Poc 2.4 ? Final [facility] ab (Internal) : [address] t 04/08/2018 INR, Blood BLD - Inr Poc 2.3 ? Final [facility] ab (Internal) : [address] t 03/13/2018 CMP, Serum S - g/r 92 mg/dL 74-106 Final [place] or Plasma mg/dL [facility] ab (Internal) : [address] t ? ? S - Bun 7 mg/dL 7-17 mg/dL Final [facility] ab (Internal) : [address] t ? ? S - Crea 0.60 mg/dL 0.52-1.04 Final [facility] th mg/dL [facility] ab (Internal) : [address] t ? ? S - Ca 9.3 mg/dL 8.4-10.2 Final [place] mg/dL [facility] ab (Internal) : [address] t ? ? S - Na 141 mmol/L 137-145 Final [place] mmol/L [facility] ab (Internal) : [address] t ? ? S - K 4.1 mmol/L 3.5-5.1 Final [place] mmol/L [facility] ab (Internal) : [address] t ? ? S - Cl 104 mmol/L 98-107 Final [place] mmol/L [facility] ab (Internal) : [address] t ? ? S - Tco2 26.0 22.0-30.0 Final [place] mmol/L mmol/L [facility] ab (Internal) : [address] t ? ? S - Tp 7.3 g/dL 6.3-8.2 Final [place] g/dL [facility] ab (Internal) : [address] t ? ? S - Alb 4.1 g/dL 3.5-5.0 Final [place] g/dL [facility] ab (Internal) : [address] t ? ? S - Tbil 0.5 mg/dL 0.2-1.3 Final [place] mg/dL [facility] ab (Internal) : [address] t ? ? S - Alp 85 U/L 38-126 U/L Final [facility] ab (Internal) : [address] t ? ? S - Alt 14 U/L 9-52 U/L Final [place] (Sgpt) [facility] ab (Internal) : [address] t ? ? S - Ast 19 U/L 14-36 U/L Final [place] (Sgot) [facility] L ab (Internal) : [address] t 03/13/2018 Ldh, Serum S - Ldh 330 U/L [id number] Final [place] or Plasma U/L [facility] ab (Internal) : [address] t 03/13/2018 CBC W/ Auto BLD High Wbc 10.3 5.0-10.0 Final [place] Diff 10*3/uL 10*3/uL [facility] ab (Internal) : [address] ? ? BLD - Rbc 4.44 4.10-5.30 Final [place] 10*6/uL 10*6/uL [facility] ab (Internal) : [address] ? ? BLD - Hgb 12.9 g/dL 12.0-16.0 Final [place] g/dL [facility] ab (Internal) : [address] ? ? BLD - Hct 40.3 % 37.0-47.0 Final [facility] ab (Internal) : [address] ? ? BLD - Mcv 90.8 fL 80.0-96.[address] [facility] ab (Internal) : [address] ? ? BLD - Mch 29.1 pg 26.0-32.0 Final [facility] ab (Internal) : [address] ? ? BLD - Mchc 32.0 g/dL 31.0-35.0 Final Nort [place] g/dL [facility] ab (Internal) : [address] ? ? BLD - Rdw 14.3 % 11.5-14.5 Final [facility] L ab (Internal) : [address] ? ? BLD - Plt 246 130-450 Final [place] 10*3/uL 10*3/uL [facility] ab (Internal) : [address] ? ? BLD - Anc 7.45 ? Final [place] 10*3/uL [facility] ab (Internal) : [address] ? ? BLD - Neutro 72.6 % 40.0-75.0 Final [facility] L ab (Internal) : [address] [place] t ? ? BLD Low Lymph 17.4 % 20.0-50.0 Final [facility] L ab (Internal) : [address] ? ? BLD - Levy 8.5 % 2.0-10.0 % Final [facility] L ab (Internal) : [address] ? ? BLD Low Eos 0.8 % 1.0-6.0 % Final [facility] L ab (Internal) : [address] ? ? BLD - Baso 0.3 % 0.0-1.0 % Final [facility] (Internal) : [address] [facility] ? ? BLD - Ig 0.4 % 0.0-0.9 % Final [facility] ab (Internal) : [address] [facility] 03/11/2018 INR, Blood BLD - Inr Poc 2.3 ? Final [facility] ab (Internal) : [address] [facility] 02/04/2018 INR, Blood BLD - Inr Poc 2.5 ? Final [facility] ab (Internal) : [address] [facility] 01/23/2018 INR, Blood BLD - Inr Poc 3.6 ? Final [facility] ab (Internal) : [address] [facility] 12/26/2017 INR, Blood BLD - Inr Poc 2.0 ? Final [facility] ab (Internal) : [address] [facility] 12/04/2017 INR, Blood BLD - Inr Poc 1.8 ? Final [facility] ab (Internal) : [address] [facility] 11/14/2017 INR, Blood BLD - Inr Poc 2.0 ? Final [facility] ab (Internal) : [address] [facility] 10/31/2017 INR, Blood BLD - Inr Poc 2.1 ? Final [facility] ab (Internal) : [address] t 10/03/2017 INR, Blood BLD - Inr Poc 2.8 ? Final [facility] ab (Internal) : [address] t 09/09/2017 Cytology, TISS - Report results ? Final N orth Non-gynecol below Count ry ogical, Hospital Lab Unspecified (Inte rnal): Specimen [address] [facility] 08/[facility]/2017 INR, Blood BLD ? Inr Poc 2.0 ? Final [facility] ab (Internal) : [address] t 08/05/2017 Venipunctur BLD ? Venpn* ? ? Final [facility] L ab (Internal) : [address] t 08/05/2017 CMP, Serum S ? g/r 98 mg/dL 74-106 Final [place] or Plasma mg/dL [facility] L ab (Internal) : [address] t ? ? S ? Bun 9 mg/dL 7-17 mg/dL Final [facility] ab (Internal) : [address] t ? ? S ? Crea 0.60 mg/dL 0.52-1.04 Final [place] th mg/dL [facility] ab (Internal) : [address] t ? ? S ? Ca 9.3 mg/dL 8.4-10.2 Final [place] mg/dL [facility] ab (Internal) : [address] t ? ? S ? Na 138 mmol/L 137-145 Final [place] mmol/L [facility] ab (Internal) : [address] t ? ? S ? K 4.0 mmol/L 3.5-5.1 Final [place] mmol/L [facility] ab (Internal) : [address] t ? ? S ? Cl 102 mmol/L 98-107 Final [place] mmol/L [facility] ab (Internal) : [address] t ? ? S ? Tco2 26.0 22.0-30.0 Final [place] mmol/L mmol/L [facility] ab (Internal) : [address] t ? ? S ? Tp 7.3 g/dL 6.3-8.2 Final [place] g/dL [facility] ab (Internal) : [address] t ? ? S ? Alb 4.1 g/dL 3.5-5.0 Final [place] g/dL [facility] ab (Internal) : [address] t ? ? S ? Tbil 0.5 mg/dL 0.2-1.3 Final [place] mg/dL [facility] ab (Internal) : [address] t ? ? S ? Alp 98 U/L 38-126 U/L Final [facility] ab (Internal) : [address] t ? ? S ? Alt 21 U/L 9-52 U/L Final [place] (Sgpt) [facility] ab (Internal) : [address] t ? ? S ? Ast 20 U/L 14-36 U/L Final [place] (Sgot) [facility] ab (Internal) : [address] t 08/05/2017 CBC W/ Auto BLD ? Wbc 8.4 5.0-10.0 Final [place] Diff 10*3/uL 10*3/uL [facility] ab (Internal) : [address] ? ? BLD ? Rbc 4.59 4.10-5.30 Final [place] 10*6/uL 10*6/uL [facility] ab (Internal) : [address] ? ? BLD ? Hgb 13.4 g/dL 12.0-16.0 Final [facility] [place] g/dL [facility] ab (Internal) : [address] ? ? BLD ? Hct 41.0 % 37.0-47.0 Final [facility] L ab (Internal) : [address] ? ? BLD ? Mcv 89.3 fL 80.0-96.[address] [facility] ab (Internal) : [address] ? ? BLD ? Mch 29.2 pg 26.0-32.0 Final [facility] ab (Internal) : [address] ? ? BLD ? Mchc 32.7 g/dL 31.0-35.0 Final Nort [facility] g/dL [facility] ab (Internal) : [address] ? ? BLD ? Rdw 13.9 % 11.5-14.5 Final [facility] ab (Internal) : [address] ? ? BLD ? Plt 223 130-450 Final [place] 10*3/uL 10*3/uL [facility] ab (Internal) : [address] t ? ? BLD ? Anc 5.91 ? Final [place] 10*3/uL [facility] ab (Internal) : [address] ? ? BLD ? Neutro 70.7 % 40.0-75.0 Final [facility] ab (Internal) : [address] ? ? BLD ? Lymph 20.2 % 20.0-50.0 Final [facility] ab (Internal) : [address] t ? ? BLD ? Levy 7.3 % 2.0-10.0 % Final [facility] ab (Internal) : [address] ? ? BLD Low Eos 0.8 % 1.0-6.0 % Final [facility] ab (Internal) : [address] [facility] ? ? BLD ? Baso 0.5 % 0.0-1.0 % Final [facility] ab (Internal) : [address] t ? ? BLD ? Ig 0.5 % 0.0-0.9 % Final [facility] ab (Internal) : [address] [facility] 08/05/2017 Ldh, Serum S ? Ldh 369 U/L [id number] Final [facility] Plasma U/L [facility] ab (Internal) : [address], [facility] t 08/05/2017 INR, Blood BLD ? Inr Poc 1.9 ? Final [facility] ab (Internal) : [address] [facility] t 07/18/2017 INR, Blood BLD ? Inr Poc 2.4 ? Final [facility] ab (Internal) : [address], [facility] t 07/11/2017 INR, Blood BLD ? Inr Poc 2.3 ? Final [facility] ab (Internal) : [address] [facility] t 06/27/2017 INR, Blood BLD ? Inr Poc 2.6 ? Final [facility] ab (Internal) : [address] [facility] t 06/17/2017 INR, Blood BLD ? Inr Poc 2.3 ? Final [facility] ab (Internal) : [address] [facility] t 06/13/2017 INR, Blood BLD ? Inr Poc 3.2 ? Final [facility] ab (Internal) : [address] [facility] t 05/17/2017 INR, Blood BLD ? Inr Poc 2.5 ? Final [facility] ab (Internal) : [address] [facility] 05/06/2017 INR, Blood BLD ? Inr Poc 2.9 ? Final [facility] ab (Internal) : [address] t 04/08/2017 INR, Blood BLD ? Inr Poc 2.4 ? Final [facility] ab (Internal) : [address] [facility] t 03/11/2017 INR, Blood BLD ? Inr Poc 2.4 ? Final [facility] ab (Internal) : [address] t 03/06/2017 INR, Blood BLD ? Inr Poc 2.3 ? Final [facility] (Internal) : [address] t 03/04/2017 Culture, UR ? Final microbiolo ? Final [place] Urine gy results [facility] (Internal) : [address] t 03/04/2017 Urinalysis, UR ABNORMA UA-WBC 5-10 [hpf] 0-3 [hpf] Final [place] [facility] (Internal) : [address] t ? ? UR ? UA-RBC 0-2 [hpf] 0-2 [hpf] Final [facility] th [facility] ab (Internal) : [address] t ? ? UR ? UA-bact rare [hpf] none seen Final N orth eria [hpf] [facility] (Internal) : [address] t ? ? UR ABNORMA UA-epit few [hpf] none seen Final N orth L helial [hpf] [facility] (Internal) : [address] t ? ? UR ? UA-mucu none seen none seen Final No rth s [hpf] [hpf] [facility] (Internal) : [address] t 03/04/2017 Urinalysis, UR ? UA-colo pale pale Final [place] Dipstick, r yellow yellow [facility] (Internal) : [address] t ? ? UR ? UA-appe clear clear Final [facility] ab (Internal) : [address] t ? ? UR ? UA-gluc negative negative Final [facility] ab (Internal) : [address] t ? ? UR ? UA-bili negative negative Final [facility] ab (Internal) : [address] t ? ? UR ? UA-keto negative negative Final [facility] ab (Internal) : [address] t ? ? UR ? UA-spec 1.010 1.003-1.03 Final [facility] (Internal) : [address] ? ? UR ABNORMA UA-bloo moderate negative Final [facility] ab (Internal) : [address] ? ? UR ? UA-pH 7.0 [pH] 4.6-8.0 Final [place] [pH] [facility] ab (Internal) : [address] ? ? UR ? UA-prot negative negative Final [facility] ab (Internal) : [address] t ? ? UR ? UA-urob normal normal Final [facility] L ab (Internal) : [address] ? ? UR ? UA-nitr negative negative Final [facility] ab (Internal) : [address] ? ? UR ABNORMA UA-leuk mod negative Final [facility] ab (Internal) : [address] 03/04/2017 INR, Blood BLD ? Inr Poc 2.6 ? Final [facility] ab (Internal) : [address] t 02/25/2017 Venipunctur BLD ? Venpn* ? ? Final [facility] ab (Internal) : [address] 02/25/2017 Ldh, Serum S ? Ldh 383 U/L 313-618 Final [place] or Plasma U/L [facility] ab (Internal) : [address] 02/25/2017 CBC W/ Auto BLD ? Wbc 9.3 5.0-10.0 Final [place] Diff 10*3/uL 10*3/uL [facility] ab (Internal) : [address] ? ? BLD ? Rbc 4.61 4.10-5.30 Final [place] 10*6/uL 10*6/uL [facility] ab (Internal) : [address] ? ? BLD ? Hgb 13.5 g/dL 12.0-16.0 [facility] (Internal) : [address] ? ? BLD ? Hct 41.2 % 37.0-47.0 Final [facility] ab (Internal) : [address] t ? ? BLD ? Mcv 89.4 fL 80.0-96.[address] [facility] ab (Internal) : [address] t ? ? BLD ? Mch 29.3 pg 26.0-32.0 Final [place] pg [facility] ab (Internal) : [address] t ? ? BLD ? Mchc 32.8 g/dL 31.0-35.0 Final Nort h g/dL [facility] ab (Internal) : [address] t ? ? BLD ? Rdw 14.0 % 11.5-14.5 Final [facility] ab (Internal) : [address] t ? ? BLD ? Plt 223 130-450 Final [place] 10*3/uL 10*3/uL [facility] ab (Internal) : [address] t ? ? BLD ? Anc 6.36 ? Final [place] 10*3/uL [facility] ab (Internal) : [address] t ? ? BLD ? Neutro 68.8 % 40.0-75.0 Final [facility] ab (Internal) : [address] t ? ? BLD ? Lymph 23.9 % 20.0-50.0 Final [facility] L ab (Internal) : [address] t ? ? BLD ? Levy 5.8 % 2.0-10.0 % Final [facility] ab (Internal) : [address] t ? ? BLD Low Eos 0.8 % 1.0-6.0 % Final [facility] ab (Internal) : [address] t ? ? BLD ? Baso 0.4 % 0.0-1.0 % Final [facility] ab (Internal) : [address] t ? ? BLD ? Ig 0.3 % 0.0-0.9 % Final [facility] ab (Internal) : [address] t 02/25/2017 CMP, Serum S ? g/r 91 mg/dL 74-106 Final [place] or Plasma mg/dL [facility] ab (Internal) : [address] ? ? S ? Bun 8 mg/dL 7-17 mg/dL Final [facility] ab (Internal) : [address], [place] ? ? S ? Crea 0.70 mg/dL 0.52-1.04 Final [facility] th mg/dL [facility] ab (Internal) : [address] t ? ? S ? Ca 9.1 mg/dL 8.4-10.2 Final [place] mg/dL [facility] ab (Internal) : [address], [place] ? ? S Low Na 135 mmol/L 137-145 Final [place] mmol/L [facility] ab (Internal) : [address] t ? ? S ? K 4.1 mmol/L 3.5-5.1 Final [place] mmol/L [facility] ab (Internal) : [address] t ? ? S ? Cl 98 mmol/L 98-107 Final [place] mmol/L [facility] ab (Internal) : [address] t ? ? S ? Tco2 24.0 22.0-30.0 Final [place] mmol/L mmol/L [facility] ab (Internal) : [address] t ? ? S ? Tp 7.3 g/dL 6.3-8.2 Final [place] g/dL [facility] ab (Internal) : [address] t ? ? S ? Alb 4.2 g/dL 3.5-5.0 Final [place] g/dL [facility] ab (Internal) : [address] t ? ? S ? Tbil 0.5 mg/dL 0.2-1.3 Final [place] mg/dL [facility] ab (Internal) : [address] t ? ? S ? Alp 94 U/L 38-126 U/L Final [facility] ab (Internal) : [address] t ? ? S ? Alt 29 U/L 9-52 U/L Final [place] (Sgpt) [facility] ab (Internal) : [address] t ? ? S ? Ast 20 U/L 14-36 U/L Final [place] (Sgot) [facility] ab (Internal) : [address] t 02/25/2017 INR, Blood BLD ? Inr Poc 2.4 ? Final [facility] ab (Internal) : [address] [facility] 02/22/2017 INR, Blood BLD ? Inr Poc 3.0 ? Final [facility] ab (Internal) : [address] [facility] 02/18/2017 Culture, UR ? Final microbiolo ? Final [place] Urine gy results [facility] ab (Internal) : [address] [facility] t 02/18/2017 sensitiviti MISC ? Sens* ? ? Final N orth es[I] [facility] ab (Internal) : [address] [facility] t 02/18/2017 Urinalysis, UR ? UA-WBC 0-3 [hpf] 0-3 [hpf] F inal [place] Microscopic Count [facility] ab (Internal) : [address] t ? ? UR ? UA-RBC 0-2 [hpf] 0-2 [hpf] Final [facility] ab (Internal) : [address] t ? ? UR ABNORMA UA-bact few [hpf] none seen Final N orth L eria [hpf] [facility] ab (Internal) : [address] t ? ? UR ABNORMA UA-epit many [hpf] none seen Final [facility] helial [hpf] [facility] ab (Internal) : [address] t ? ? UR ? UA-mucu none seen none seen Final No rth s [hpf] [hpf] [facility] ab (Internal) : [address] t 02/18/2017 Urinalysis, UR ? UA-colo yellow pale Final [place] Dipstick, r yellow [facility] Micro (Internal) : [address] t ? ? UR ? UA-appe clear clear Final [facility] ab (Internal) : [address] ? ? UR ? UA-gluc negative negative Final [facility] ab (Internal) : [address] t ? ? UR ? UA-bili negative negative Final Nort h [facility] ab (Internal) : [address] t ? ? UR ? UA-keto negative negative Final Nort h ne [facility] ab (Internal) : [address] ? ? UR ? UA-spec <1.005 1.003-1.03 Final Nort h Grav 5 [facility] ab (Internal) : [address] [place] ? ? UR ABNORMA UA-bloo moderate negative Final Nor th [facility] ab (Internal) : [address] [place] ? ? UR ? UA-pH 6.0 [pH] 4.6-8.0 Final [place] [pH] [facility] ab (Internal) : [address] [place] ? ? UR ? UA-prot negative negative Final Nort h [facility] ab (Internal) : [address] [place] ? ? UR ? UA-urob normal normal Final [facility] ab (Internal) : [address], [place] ? ? UR ? UA-nitr negative negative Final Nort ite [facility] ab (Internal) : [address], [place] [address] ? ? UR ABNORMA UA-leuk trace negative Final [facility] (Internal) : [address] t 02/18/2017 INR, Blood BLD ? Inr Poc 2.2 ? Final [facility] (Internal) : [address] t 02/05/2017 INR, Blood BLD ? Inr Poc 2.9 ? Final [facility] (Internal) : [address] t 01/08/2017 INR, Blood BLD ? Inr Poc 2.5 ? Final [facility] (Internal) : [address] t 12/25/2016 INR, Blood BLD ? Inr Poc 3.2 ? Final [facility] (Internal) : [address] t 12/04/2016 INR, Blood BLD ? Inr Poc 2.5 ? Final [facility] (Internal) : [address] t 11/19/2016 INR, Blood BLD ? Inr Poc 3.6 ? Final [facility] (Internal) : [address] t 11/06/2016 INR, Blood BLD ? Inr Poc 1.3 ? Final [facility] (Internal) : [address] 11/05/2016 Venipunctur BLD ? Venpn* ? ? Final [facility] ab (Internal) : [address] 11/05/2016 ALT S ? Alt 25 U/L 9-52 U/L Final Nort h (Alanine (Sgpt) [facility] Aminotransf Hospi kirt Lab erase), (Internal ): Serum or [address] 11/05/2016 Lipid S ? Chol 177 mg/dL 50-200 Final Nor th Panel, mg/dL [facility] ab (Internal) : [address] t ? ? S High Trig 182 mg/dL 10-150 Final [place] mg/dL [facility] ab (Internal) : [address] t ? ? S Low Hdl 31 mg/dL 40-60 Final [place] mg/dL [facility] ab (Internal) : [address] t ? ? S ? Ldl 110 mg/dL 0-130 Final [place] mg/dL [facility] ab (Internal) : [address] 11/01/2016 Pathology TISS ? Report results ? Final N orth Study below [facility] ab (Internal) : [address] 10/29/2016 Venipunctur BLD ? Venpn* ? ? Final [facility] ab (Internal) : [address] 10/29/2016 Prothrombin BLD ? Pt 11.0 S 9.1-11.7 S Sana l [facility] L ab (Internal) : [address] t ? ? BLD ? Inr 1.1 ? Final [facility] ab (Internal) : [address] 10/29/2016 Partial BLD ? APTT 27 s 22-35 s Final Nort h Thromboplas (Op) Count ry [facility] Lab (Internal) : [address] 10/29/2016 CBC W/ Auto BLD ? Wbc 7.1 5.0-10.0 Final [place] Diff 10*3/uL 10*3/uL [facility] ab (Internal) : [address] t ? ? BLD ? Rbc 4.67 4.10-5.30 Final [place] 10*6/uL 10*6/uL [facility] ab (Internal) : [address] ? ? BLD ? Hgb 13.8 g/dL 12.0-16.0 Final Nort h g/dL [facility] ab (Internal) : [address] ? ? BLD ? Hct 41.8 % 37.0-47.0 Final [facility] L ab (Internal) : [address] [place] ? ? BLD ? Mcv 89.5 fL 80.0-96.[address] [facility] ab (Internal) : [address] ? ? BLD ? Mch 29.6 pg 26.0-32.0 Final [facility] L ab (Internal) : [address] ? ? BLD ? Mchc 33.0 g/dL 31.0-35.0 Final Nort h g/dL [facility] ab (Internal) : [address] ? ? BLD ? Rdw 13.7 % 11.5-14.5 Final [facility] L ab (Internal) : [address] ? ? BLD ? Plt 194 130-450 Final [place] 10*3/uL 10*3/uL [facility] ab (Internal) : [address] ? ? BLD ? Anc 4.87 ? Final [place] 10*3/uL [facility] ab (Internal) : [address] ? ? BLD ? Neutro 68.3 % 40.0-75.0 Final [facility] ab (Internal) : [address] ? ? BLD ? Lymph 23.4 % 20.0-50.0 Final [facility] L ab (Internal) : [address] ? ? BLD ? Levy 6.9 % 2.0-10.0 % Final [facility] ab (Internal) : [address] [place] ? ? BLD Low Eos 0.7 % 1.0-6.0 % Final [facility] L ab (Internal) : [address] ? ? BLD ? Baso 0.4 % 0.0-1.0 % Final [facility] L ab (Internal) : [address] ? ? BLD ? Ig 0.3 % 0.0-0.9 % Final [facility] ab (Internal) : [address] [place] 10/08/2016 INR, Blood BLD ? Inr Poc 2.9 ? Final [facility] ab (Internal) : [address] [place] [address] 10/04/2016 INR, Blood BLD ? Inr Poc 2.5 ? Final [facility] ab (Internal) : [address] [place] 09/06/2016 INR, Blood BLD ? Inr Poc 2.7 ? Final [facility] ab (Internal) : [address] 08/08/2016 INR, Blood BLD ? Inr Poc 2.5 ? Final [facility] ab (Internal) : [address] [place] 07/27/2016 INR, Blood BLD ? Inr Poc 2.1 ? Final [facility] ab (Internal) : [address] [place] 07/03/2016 INR, Blood BLD ? Inr Poc 2.9 ? Final [facility] ab (Internal) : [address] [place] Past Encounters 06/28/2020 Nonsustained Ventricular Tachycardia Travis Woodall MD: [address] [place] [address], Ph. 06/09/2020 Travis Woodall MD: [address] [place] [address], Ph. 05/02/2020 Atrial Fibrillation; Peripheral Arterial Occlusive Disease; Skin Lesion Barib Smart, SHIRRING TENDER: [address] [facility] [address] [place] [address], Ph. 04/15/2020 Atrial Fibrillation; Hypertensive Disord er; Insomnia; Malignant Lymphoma; Peripheral Arterial Occlusive Disease Barbi Smart, SHIRRING TENDER: [address] [place] [address], Ph. 03/10/2020 Peripheral Arterial Occlusive Disease; H ypertensive Disorder; Screening Mammography Barbi Smart, SHIRRING TENDER: [address] [place] [address] [place] [address], Ph. 01/29/2020 Low Blood Pressure Barbi Smart SHIRRING TENDER: [address] [place] [address] [place] [address], Ph. 01/22/2020 Adult Health Examination; Hypertensive D isorder; Hyperlipidemia; Atrial Fibrillation; Insomnia; Malignant Lymphoma; Nicotine Dependence; Peripheral Arterial Occlusive Disease Barbi Smart, SHIRRING TENDER: [address] [place] [address] [place] [address], Ph. 08/21/2019 Increased Frequency of Urination; Low Ba ck Pain; Clavicle Pain Dolly Kwan, SHIRRING TENDER: [address] [place] [address] [place] [address], Ph. 07/13/2019 Nicotine Dependence; Gastroesophageal Re flux Disease Barbi Smart SHIRRING TENDER: [address] [place] [address] [place] [address], Ph. 06/04/2019 Gastroesophageal Reflux Disease; Abdomin al Bloating; Atrial Fibrillation; Nicotine Dependence; Hypertensive Disorder; Hyperlipidemia; Malignant Lymphoma Barbi Smart SHIRRING TENDER: [address] [place] [address] [place] [address], Ph. 03/02/2019 Abdominal Bloating; Active or Passive Im munization; Malignant Lymphoma; Hypertensive Disorder; Atrial Fibrillation; Screening for Malignant Neoplasm of Cervix Barbi Smart, SHIRRING TENDER: [address] [place] [address] [place] [address], Ph. 03/02/2019 Occult Blood in Stools Heath Leon MD: [address] [facility] [place] [address], Ph. Social History Tobacco Smoking Status Former Smoker Notes: quit sm oking 06/08/2020, 04/30 PPD Vaccine List Vaccine Type influenza, injectable, quadrivalent 03/03/2020 influenza, injectable, quadrivalent, pre servative free 03/11/2018?0.5 mL influenza, trivalent, adjuvanted 03/02/2019?0.5 mL pneumococcal conjugate PCV 13 09/25/2018?0.5 mL Tdap 04/11/2012?0.5 mL zoster live 05/21/2014?0.5 mL zoster recombinant 03/11/2018?0.5 mL 05/12/2018?0.5 mL Plan of Care Reminders Provider Appointments None ? ? recorded. Lab None ? ? recorded. Referral None ? ? recorded. Procedures None ? ? recorded. Surgeries None ? ? recorded. Imaging None ? ? recorded. Vitals 06/28/2020 02:30PM NuclearMedFollow-up Height Weight BMI Blood Pressure 154.94 cm 50.2 kg 20.9 kg/m2 136/70 mm[Hg] 06/09/2020 03:00PM Consult 45 Height Weight BMI Blood Pressure 154.94 cm 49.85 kg 20.8 kg/m2 136/67 mm[Hg] 05/02/2020 10:00AM Acute 40 Height Weight BMI Blood Pressure 154.94 cm 48.22 kg 20.1 kg/m2 130/60 mm[Hg] 04/15/2020 09:40AM Follow Up 20 Height Weight BMI Blood Pressure 154.94 cm 48.53 kg 20.2 kg/m2 116/72 mm[Hg] 03/10/2020 01:00PM Acute 20 Height Weight BMI Blood Pressure 154.94 cm 49.04 kg 20.4 kg/m2 96/60 mm[Hg] 01/29/2020 10:20AM Acute 20 Height Weight BMI Blood Pressure 154.94 cm 49.44 kg 20.6 kg/m2 70/45 mm[Hg] 01/22/2020 12:40PM CPE 40 Height Weight BMI Blood Pressure 154.94 cm 51.03 kg 21.3 kg/m2 116/56 mm[Hg] 08/21/2019 10:00AM Acute 40 Height Weight BMI Blood Pressure 154.94 cm 57.8 kg 24.1 kg/m2 120/68 mm[Hg] 07/13/2019 08:00AM Follow Up 20 Height Weight BMI Blood Pressure 154.94 cm 57.83 kg 24.1 kg/m2 122/64 mm[Hg] 06/04/2019 09:20AM Follow Up 40 Height Weight BMI Blood Pressure 154.94 cm 57.92 kg 24.1 kg/m2 124/62 mm[Hg] 03/02/2019 10:45AM Office 15 Height 154.94 cm 03/02/2019 02:20PM Follow Up 40 Height Weight BMI Blood Pressure 154.94 cm 57.74 kg 24.1 kg/m2 122/64 mm[Hg] 11/27/2018 09:20AM Follow Up 20 Height Weight BMI Blood Pressure 154.94 cm 56.79 kg 23.7 kg/m2 126/70 mm[Hg] 09/25/2018 07:20AM CPE 40 Height Weight BMI Blood Pressure 154.94 cm 57.69 kg 24 kg/m2 118/60 mm[Hg] 09/04/2018 02:00PM Acute 40 Height Weight BMI Blood Pressure 154.94 cm 57.79 kg 24.1 kg/m2 126/64 mm[Hg] 03/11/2018 01:00PM Follow Up 20 Height Weight BMI Blood Pressure 154.94 cm 56.79 kg 23.7 kg/m2 120/60 mm[Hg] 12/26/2017 09:40AM Follow Up 20 Height Weight BMI Blood Pressure 154.94 cm 55.79 kg 23.2 kg/m2 124/62 mm[Hg] 11/14/2017 09:20AM Follow Up 20 Height Weight BMI Blood Pressure 154.94 cm 55.7 kg 23.2 kg/m2 116/58 mm[Hg] 06/17/2017 Weight Blood Pressure 57.7 kg 126/68 mm[Hg] 03/11/2017 Height Weight Blood Pressure 154.94 cm 56.5 kg 118/64 mm[Hg] 03/04/2017 Weight Blood Pressure 56.25 kg 130/82 mm[Hg] 02/18/2017 Weight Blood Pressure 55.97 kg 128/64 mm[Hg] 09/06/2016 Height Weight Blood Pressure 154.94 cm 56.56 kg 118/60 mm[Hg] 06/04/2016 Weight Blood Pressure 56.38 kg 132/60 mm[Hg] 05/18/2016 Weight Blood Pressure 55.47 kg 114/70 mm[Hg] 03/06/2016 Weight Blood Pressure 53.89 kg 138/64 mm[Hg] 10/27/2015 Weight Blood Pressure 48.49 kg 110/62 mm[Hg] 09/29/2015 Weight Blood Pressure 46.4 kg 102/64 mm[Hg] 09/06/2015 Height Weight Blood Pressure 152.4 cm 46.67 kg 128/62 mm[Hg] 07/07/2015 Weight Blood Pressure 44.68 kg 116/58 mm[Hg] 06/29/2015 Weight Blood Pressure 44.54 kg 132/66 mm[Hg] 05/17/2015 Weight Blood Pressure 43.86 kg 126/68 mm[Hg] 05/06/2015 Weight Blood Pressure 44.27 kg 118/60 mm[Hg] 03/04/2015 Height Weight Blood Pressure 152.4 cm 44.23 kg 138/70 mm[Hg] 08/27/2014 Height Weight Blood Pressure 152.4 cm 44.45 kg 132/66 mm[Hg] 05/21/2014 Weight Blood Pressure 44.63 kg 138/76 mm[Hg] 11/16/2013 Height Weight Blood Pressure 153.67 cm 44.54 kg (1) 140/70 mm[Hg] (2) 132/70 mm[Hg] (3) 150/70 mm[Hg] 08/20/2013 Weight Blood Pressure 43.5 kg 136/68 mm[Hg] 07/31/2013 Height Weight Blood Pressure 152.4 cm 43.32 kg (1) 136/82 mm[Hg] (2) 140/80 mm[Hg] 01/30/2013 Weight Blood Pressure 44 kg 118/62 mm[Hg] 07/17/2012 Weight Blood Pressure 43.36 kg 136/60 mm[Hg] 05/15/2012 Weight Blood Pressure 43.09 kg 140/84 mm[Hg] 04/11/2012 Weight Blood Pressure 42.59 kg 150/66 mm[Hg] 10/11/2011 Height Weight Blood Pressure 152.4 cm 42.64 kg 128/72 mm[Hg] 06/15/2011 Height Weight Blood Pressure 152.4 cm 44 kg 134/68 mm[Hg] 05/28/2011 Height Weight Blood Pressure 152.4 cm 42.91 kg 142/74 mm[Hg] 08/28/2010 Height Weight Blood Pressure 153.67 cm 42.18 kg 122/86 mm[Hg] 07/05/2010 Weight Blood Pressure 43.32 kg 146/82 mm[Hg] 05/30/2010 Weight Blood Pressure 43.09 kg 120/66 mm[Hg] 03/07/2010 Height Weight Blood Pressure 154.94 cm 41.73 kg 120/80 mm[Hg]
--- OUTSIDE RECORDS SUMMARY | 2020-06-29 08:55 | XMS_ITS | Encounter Summary ---
:1955 Author Care Team Providers Name Role Phone Barbi Smart NP Primary Care Provider [phone] Abraham Woodall MD Roll Trucker [phone] Antonio Leon MD General Surgeon [phone] Reason for Visit None recorded. Assessment and Plan 1. Atrial fibrillation 05/02/2020: Noted to have HR in the 150's after her vascular surgery. Asymptomatic. Home HR's have been 80-90' s. Discussed monitor to assess overall rate control. She will f/u as scheduled or so miles if needed. ? event monitor - 14 Days 2. Peripheral arterial occlusive disease 05/02/2019: Patient recently had surgery on the LLE for angioplasty. Pain has improved. Continues to have some pain in her toes. Notes a scabbed area on the lateral left great toe. No s/s suggestiv e of necrosis at this time. Advised to monitor and educated on s/s to report. 3. Skin lesion 05/02/2019: About 0.5cm annular hyperkeratotic lesion with indentation on the top of the scalp. This was in the area o f previous cellulitis. Non-tender. Discussed watchful waiting with soaking and use of petroleum to help soften/moisten the area and promote tissue healing vs referral t o dermatology. She has a f/u with her oncologist next week and will discuss wi th her and then let this office know if she desires referral. Discussion Note: None recorded.Patient educational handouts: No information available. Plan of Care Reminders Provider Appointments Follow 07/15/2020 Barbi andersen, TOOL TROUBLE SHOOTER up 20 9:40AM ? Follow on or around Abraham Woodall, up 30 12/29/2020 MD ? Cpe 40 01/24/2021 Barbi weems, TOOL TROUBLE SHOOTER 11:00AM ? Return on or around Antonio sandoval MD to Office 04/07/2024 Lab None ? ? recorded. Referral None ? ? recorded. Procedures None ? ? recorded. Surgeries None ? ? recorded. Imaging Event 05/02/2020 [facility] Monitor Cardiopulmonary Medications Name Start Date ? ? acyclovir 400 mg tablet ? Take 1 tablet twice a day by oral route. Aspir-81 mg tablet,delayed release ? Take 1 tablet every day by oral route. atorvastatin 80 mg tablet ? Take 1 tablet every day by oral route for 90 days. Calcium 500 + D 500 mg (1,250 mg)-200 unit tablet ? Take 1 tablet twice a day by oral route. Compazine 10 mg tablet ? Take 1 tablet every 6 hours by oral route as needed. Eliquis 5 mg tablet ? Take 1 tablet twice a day by oral route for 90 days. enalapril maleate 2.5 mg tablet ? Take 1 tablet every day by oral route. gabapentin 300 mg capsule ? Take 2 capsules twice a day. Take 3 capsules at Bedt wally lansoprazole 30 mg capsule,delayed release ? Take 1 capsule(s) every day by oral route.] metoprolol tartrate 25 mg tablet ? Take 1 tablet twice a day by oral route. 1 tablet in AM and 1 tablet at Noon metoprolol tartrate 50 mg tablet ? Take 1 tablet 3 times a day by oral route. 1 tablet in AM, 1 tablet at Noon, 1 tablet in PM Miralax 17 gram/dose oral powder 10/22/2019 Take 17 g every day by oral route. Notes: 03/10/2020 patient provid ed a current medication list for review Medications Administered None recorded. Vitals Height Weight BMI Blood Pressure 5 ft 1 in 106 lbs 5 oz 20.1 kg/m2 130/60 mm[Hg] Results Lab Results None recorded. Allergies Code Code System Name Reaction Severity Onset 288385 RxNorm Fosamax ? ? ? 218023 RxNorm Plavix Rash ? ? Notes: No seafood allergy. No co ntrast allergy. 03/10/20 verbal review with patient Problems Name Status Onset Date Source ? Long-term Current Use of Anticoagulant Active 0 ? Skin Lesion Active 05/02/2020 ? Malignant Lymphoma Active ? History Hyperlipidemia Active ? History Nicotine Dependence Active ? History Insomnia Active ? History Hypertensive Disorder Active ? History Atrial Fibrillation Active ? History Peripheral Arterial Occlusive Disease Active ? History Gastroesophageal Reflux Disease Active ? History Fibrocystic Disease of Breast Active ? Hi story Osteochondropathy Active ? History Chest Pain Active ? History Abnormal Glucose Level Active ? History Abnormal Findings on Diagnostic Imaging Active ? History of Breast Placentography Abnormal Active ? History Influenza Vaccine Needed Active ? History Closed Fracture of Lateral Malleolus of Active ? History Left Fibula Procedures Date Name Performed by [...] lable ? Appendectomy Information not avai lable 05/02/2020 Event Monitor [facility] Cardio pulmonary [address] [address] (Work Place) Vaccine List Vaccine Type influenza, injectable, quadrivalent 03/03/2020 influenza, injectable, quadrivalent, pre servative free 03/11/2018?0.5 mL influenza, trivalent, adjuvanted 03/02/2019?0.5 mL pneumococcal conjugate PCV 13 09/25/2018?0.5 mL Tdap 04/11/2012?0.5 mL zoster live 05/21/2014?0.5 mL zoster recombinant 03/11/2018?0.5 mL 05/12/2018?0.5 mL Social History Tobacco Smoking Status Former Smoker Notes: quit sm oking 06/08/2020, 04/30 PPD Are you currently employed? N Blind or serious difficulty seeing N Not es: glasses Chewing tobacco none Have you had close contact with N someone who travelled internationally and was ill? Most Recent Tobacco Use Screening 06/09/2020 Exercise level Occasional Tobacco-years of use 35 Hand Dominance Right Alcohol intake None Live alone or with others? with others Notes: hus band Animal exposure? N Education 10 Language Difficulties No Smoking - patient's current pack 30ormorepackyears Notes : 34 years? Hard of hearing or deaf in one or N both ears? Caffeine intake Moderate Notes: 3 cups cameron ly Drug Use N Have you traveled internationally? N Occupation Retired Family History Relation Problem Onset Age of Age Notes Brother Heart disease (No N/A (No Notes) Information) Brother Hypertensive disorder (No N/A (No No travis) Information) Brother Myocardial infarction (No N/A (No No travis) Information) Brother Hyperlipidemia (No N/A (No Notes) Information) Father Heart disease (No N/A (No Notes) Information) Father Hypertensive disorder (No N/A (No No travis) Information) Functional Status No Impairment. Past Encounters 05/02/2020 Atrial Fibrillation; Peripheral Arterial Occlusive Disease; Skin Lesion Barbi Smart TOOL TROUBLE SHOOTER: [address] [place] [address] [place] [address], Ph. 04/15/2020 Atrial Fibrillation; Hypertensive Disord er; Insomnia; Malignant Lymphoma; Peripheral Arterial Occlusive Disease Barbi Smart TOOL TROUBLE SHOOTER: [address] [place] [address] [place] [address], Ph. History of Present Illness Note: <p>FU for increased Heart Rate. patient states she had vascular surgery two weeks ago. She states when they were getting ready to discharge her, her heart rate increased and had to use IV medications to lower it. They increased atorvastatin to 80 mg at that time. Patient state she is not having any symptoms, she states she does not feel it increase.</p> Review of Systems ? Comprehensive Adult Problem ROS Reported By: Patient Constitutional: Constitutional: no significa nt weight change, good appetite, no fever, no fatigue Cardiovascular: Cardiovascular: no chest bhavin n, rapid heart rate Respiratory: Respiratory: no cough, no wh eezing, no chest tightness Gastrointestinal: GI: no abdominal pain, no na usea, no vomiting, no diarrhea, constipation; stable with Mi ralax Genitourinary: : no pain with urination, no increase in frequency of urination, no vaginal discha rge Skin: Skin: no rash, skin lesions Psychiatric: Psych: no depression, no anx iety, insomnia Endocrine: Endocrine: normal drinking Allergic/Immunologic: Allergy/Immunologic: no snee zing, no runny nose Physical Exam ? Brief PE Reported By: Patient General: General Appearance: healthy- appearing, well-nourished, well-develop ed. Level of Distress: NAD Eyes, Ears, Nose, Mouth, Throat: Oropharynx: moist muc ous membranes Cardiovascular: Heart Auscultation: normal S 1, normal S2, no murmurs, no rubs, no gallops , tachycardia, irregularly irregular. Extre mities: no edema Lungs: Auscultation: clear, no whee zing, no rales/crackles, no rhonchi Neurological: Orientation: to time, to josephine ce, to person. Motor Strength and Tone: normal mo tor strength, normal tone Skin: Inspection and palpation: wa rm and dry, good turgor, lesion; Lateral aspect of le ft great toe with about 3mm brownish scabbed area. Capillary refill less than 3 seconds. Painless. No ulcerations noted Psychiatric: Affect appropriate
--- OUTSIDE RECORDS SUMMARY | 2020-06-29 08:55 | XMS_ITS | Encounter Summary ---
:1955 Author Care Team Providers Name Role Phone Barbi Smart NP Primary Care Provider [phone] Abraham Woodall MD Lining Cementer [phone] Antonio Leon MD General Surgeon [phone] Reason for Visit None recorded. Assessment and Plan 1. Atrial fibrillation 04/15/2020: Stable symptoms. R emains on Eliquis. Denies any issues with bleeding. Follow up in three months. 2. Hypertensive disorder 04/15/2020: Well controlled of f the ACEI. Continue to follow. Return to office in three months. 3. Insomnia 04/15/2020: Uncontrolled. She notes she is able to fall asleep, however wakes early. Discussed trial of increasi ng her Gabapentin as well as trial of Tylenol or Tylenol PM. Follow up in three months . 4. Malignant lymphoma 04/15/2020: Followed by [facility]. She finished chemo in February and will be started on an oral agent next month. Due for PCV in June. 5. Peripheral arterial occlusive disease 04/15/2020: Patient notes ranulfo dication in left calf has increased with walking short distances. She denies any ulcerations. She is now having pain at rest that is shooting and goes into her foot/ toes. She continues to smoke though is down to 2-3 cigs/day. She acknowledges the ri sks of continuing to smoke. She is being followed by vascular and unfortunately d ue to the 90% occlusion there is unlikely going to be pain control until she has s urgery. She will f/u with vascular today. Increasing gabapentin may also help with this and advised she take Tylenol. If not helping she will call. Discussion Note: None recorded.Patient educational handouts: No information available. Plan of Care Reminders Provider Appointments Follow up 07/15/2020 Barbi Smart NP 20 9:40AM ? Follow up on or around Etienne Romero 12/29/2020 MD Jose C ? Cpe 40 01/24/2021 Barbi Sanchez er, [employer]ENTIAL[employer] SPECIALIST 11:00AM ? Return to on or around Antonio Leon MD Office 04/07/2024 Lab None ? ? recorded. Referral None ? ? recorded. Procedures None ? ? recorded. Surgeries None ? ? recorded. Imaging None ? ? recorded. Medications Name Start Date ? ? acyclovir [...] Pressure 5 ft 1 in 106 lbs 16 oz 20.2 kg/m2 116/72 mm[Hg] Results Lab Results None recorded. Allergies Code Code System Name Reaction Severity Onset 957485 RxNorm Fosamax ? ? ? 554147 RxNorm Plavix Rash ? ? Notes: No [...] lable ? Appendectomy Information not avai lable Vaccine List Vaccine Type influenza, injectable, quadrivalent [...] Information) Functional Status No Impairment. Past Encounters 04/15/2020 Atrial Fibrillation; Hypertensive Disord er; Insomnia; Malignant Lymphoma; Peripheral Arterial Occlusive Disease Barbi Smart, CREDENTIALS SPECIALIST: [address] [place] [address] [place] [address], Ph. History of Present Illness ? Atrial Fibrillation Reported By: Patient Notes: <p>Reports very occasional p ain in the heart that is sharp however not severe and lasts for only se conds. Reports no known cause. REcent echo was WNL per Pt</p> ? Hypertension F/U Reported By: Patient HPI: Medications: taking medicati ons as directed, no side effects from medication, checks blood pre ssure at home, range:. Lifestyle: limiting/avoiding salt, not exercising regularly. Associated Symptoms: no dizziness, no lightheaded ness, no chest pain, no shortness of breath, no palpitations, no headache , edema, calf pain with exertion Note: <p>Patient is due for PPSV 23 however states was instructed by Oncologist not to have Pneumo vacc until June d/t Chemo. States would have effect on efficacy. Has completed Chemo however is scheduled to take a maintainance chemo starting next month. Would like to discuss on going LE pain which is keeping Pt up at night.</p> Review of Systems ? Comprehensive Adult Problem ROS Reported By: Patient Constitutional: Constitutional: no fever, ex cess weight loss, loss of appetite, fatigue Cardiovascular: Cardiovascular: no chest bhavin n, normal heart rate Respiratory: Respiratory: no cough, no wh eezing, no chest tightness Gastrointestinal: GI: no abdominal pain, no na usea, no vomiting, no diarrhea, constipation; stable with Mi ralax Genitourinary: : no pain with urination, no increase in frequency of urination, no vaginal discha rge Skin: Skin: no rash, no skin lesio ns Psychiatric: Psych: no depression, no anx iety, [...] Inspection and palpation: wa rm and dry, no lesions, good turgor Psychiatric: Affect appropriate
--- OUTSIDE RECORDS SUMMARY | 2020-06-29 08:55 | XMS_ITS | Encounter Summary ---
:1955 Author Care Team Providers Name Role Phone Barbi Samrt NP Primary Care Provider [phone] Abraham Woodall MD Self Pay Collector [phone] Antonio Leon MD General Surgeon [phone] Reason for Visit Atrial Fibrillation; PVD-Peripheral Vasc ular Disease; Follow Up Stress Test; NSVT Assessment and Plan Assessment Note Date: June 28, 2020 Referring: Re: [place] 64-year-old woman Problems: 1. Atrial fibrillation. Clinically silent. Paroxysmal/persistent . She describes fibrillation being diagnos ed at least 7 years ago. She was followed by Dr. Louise for this. Maintained on beta-jai, anticoagulat ed with Coumadin initially. Has been transitioned to Eliquis. She underwent vascular surgery procedure March 2020 at [facility]. On , she was in process of being discharged, noted to be in rapid atrial fibrillation. She spontaneously converted back to sinus rhythm and was discharged. No s ense of palpitations. 2. Peripheral artery disease. Followed by vascular surgery. March. Left iliofemoral/SFA/pro farrah endarterectomy with patch angioplasty. Left external iliac stent. Angioplasty bilateral common iliac. 2008. Right common iliac/external iliac stent. Patient walking half mile per day. Toe p ain, neuropathic in nature. 3. Follicular lymphoma. Metastatic disease diffusely in the thor acic and lumbar spine. Metastatic disease liver. Large mass right clavicle. Small amount epidural extension sacrum. Epidural mass T8. 6 cycles R-CHOP chemotherapy (cyclophosp hamide, doxorubicin, vincristine, prednisone, Rituxan). Developed severe anemia and thrombocytop enia with final cycle CHOP January 2020. Suspicion for GI bleed, transfused. High-grade follicular lymphoma, grade 3A . 4. Nonsustained VT. Event monitor April 2020 (obtained bec ause of atrial fibrillation) demonstrating two brief runs NSVT. These occurred during daytime hours. Asymptomatic. HPI: June 28, 2020. She lives with her h usband and grandson. She is modestly active. Performs domestic chores. She cooks and cleans, occasionally use a vacuum assembly cleaner. Helps with laundry. She does not c limb stairs much, stairs were a problem prior to vascular surgery March 2021. She had significant claudication at that time. Some improvement with surgery. She does not exercise on a regular basis. Less than four METS. She is bothered by lower extremity disco mfort. This bothers especially at night. Keeps her awake. She will walk around the kitchen table several times to augment blood flow to her lower extremity, this will help with chest discomfort. She carrillo s this every hour. To go for some form of revascularization in the next couple of weeks. No history of chest discomfort. No short ness of breath. Denies PND orthopnea edema. Sleeps on two pillows. Denies palpitations. No presyncope or syncope. No bleeding problems. No snoring history. DATA: Cardiac risk factors: Positive hypertens ion. Positive cholesterol. Positive diabetes. Positive tobacco. Quit yesterday. [id number]-[id number] history. Positive family history, brother had early NV. Social history: Activity profile as abov e. Past medical history: Fibular fracture. Fibrocystic breast disease. GERD. Insomnia. Malignant lymphoma (follicular lymphoma). Review of systems: A 10-point review of systems was obtained. Pertinent positives as described in HPI, all others negative. Allergies: Contrast allergies: Echo: February 22, 2020. [facility]. LVEF 56%. No segmental wall motion abnormalities. Normal size. Normal thickness. GLS -16%. Normal left-sided filling pressures suggested. Left atrium mildly dilated, 3 8. Right ventricle normal size and funct ion. Aortic valve trileaflet. 1?2+ MR. 1?2+ TR. Trace PI. Pericardium normal. Pericardial fat pad. Aortic root normal. Ascending not well visualized . IVC normal. Pulmonary pressure 25-30 m mHg plus right atrial pressure (25-35 mmHg total). October 02, 2019. Prechemotherapy echo. LVEF 60%. GLS -20.2%. No segmental wall motion abnormalities. Right ventricle normal size and function. Left atrium mildly dilated, 37.5. Right ventricle normal size and function. Pulmonary pressure 36 mmHg . Aortic valve trileaflet. 1?2+ MR. 1?2+ TR. Pulmonic valve not well visualized. Trace PI. Pericardium normal. Pericardial fat pad. Aortic root and ascending aorta normal size. Pulmonary a rtery normal. IVC normal. E primed 9, 9 (7, 10). E/E prime average 13.7 (14). Pulmonary pressure 30-35 mmHg plus right atrial pressure (30-40 mmHg total). Cardiac MRI: Stress: June 21, 2020. Ambulated 4 m inutes on the Tay protocol. Achieved 99% MPHR, 153 bpm. Stop because of fatigue. No chest pain. No EKG changes. Baseline sinus. Frequent single PVC. No VT. Norm al hemodynamics. O2 sat fracisco 95%. [place] ge functional capacity. Normal perfusion. LVEF 55%, normal regional and global wall motion. [facility]: Holter: Event monitor: May 12-2020. 13 d ays 19 hours. Baseline rhythm sinus. Rare single PAC. 30 burst SVT, fastest 187 bpm, longest 15 seconds (average rate 103 bpm). No atrial fibrillation. Atrial ect opy appears to occur during daytime and nighttime hours. Occasional single PVC, 1.5% total beat. Rare couplet. Rare triplet. This form of ectopy occurs during daytime and nighttime hours. Two burst NSVT , longest five beat duration, fastest 18 7 bpm. VT occurs at 4:37 PM, 8:03 AM. No pauses greater than or equal to 3 seconds. No bradycardia/block. No triggered events. No symptoms. Average rate sinus 79 bpm, range 62-128 bpm. EKG: June 09, 2020. Sinus rhythm 70 bpm. Normal axis. No acute change. QT/QTc 396/413 ms. Radiology: January 30, 2020. Chest x-ray. Medi[facility] tip [place] the [facility] No acute abnormality. Pulmonary function test: Labs: June 20, 2020. TSH normal 0.68 . Free T4 normal 0.99. T3 total normal 138. June 07, 2020. Magnesium normal 1.8. TSH low 0.43. BUN/creatinine 8/0.5, lites normal. February 16, 2020. BUN/creatinine 6/0.5. Electrolytes normal. AST/ALT normal. Hemoglobin/hematocrit 11.2/34.9. WBC, platelet normal. November 04, 2017. Total cholesterol 177, HDL 31, LDL 110, triglycerides 182. Medications: Aspirin 81 mg daily, atorva statin 80 mg daily, apixaban 5 mg twice daily, enalapril 2.5 mg daily, metoprolol tartrate 75 mg every morning and noon, 50 mg at bedtime MiraLAX, lansoprazole, gabapentin, Hever zine, calcium, acyclovir Exam: Blood pressure: 136/70 Heart rate: 67 Oxygen saturation: 99% room air Weight: 110 pounds, 109.9 pounds General: Patient alert oriented appropri ate conversant. HEENT: JVP 7 cm sitting. Heart: Regular rate and rhythm, S1-S2, n o murmur gallop or rub. Lungs: Clear to auscultation bilaterally . Abdomen: Soft. Nontender. Nondistended. Extremities: No lower extremity edema bi laterally. Assessment: 1. Atrial fibrillation. Present for many years. Clinically silen t. Appears to be paroxysmal/persistent. 2-week event monitor April 2020: No at rial fibrillation. Frequent brief burst SVT. Anticoagulated with apixaban. Maintained on beta-jai. I think current management strategy is r easonable. Appears to be fairly well beta blocked. Consider sleep evaluation. 2. Nonsustained VT. Incidental finding on April 2020 event monitor. Asymptomatic. 4?5 beat duration. Other ventricular ectopy on this monitor : PVCs 1.5% of total beat. Rare couplet. Rare triplet. Complex ventricular ectopy appears to oc cur during daytime hours. Beta-jai has been uptitrated. I thin k she is well beta blocked. We will plan on repeating monitor 6 catherine hs. Was planning on repeating echo, this did not occur. However, gated images on MPI suggest LVEF quite consistent with January 2020 [facility] echo. EF would appear to be stable between January 2020 in May 2020. We will repeat echo 6 months. MPI May 2020: Normal perfusion. May pursue cardiac MRI eventually. May consider sleep evaluation, no snorin g history. 3. Peripheral vascular disease. As above, extensive. Maintained on aspirin and statin. Followed by vascular surgery. 4. Chemotherapy exposure 2019. As above, R-CHOP regimen, six cycles. Pl an was to continue maintenance therapy, this postponed until patient can receive coronavirus vaccine. As above, slight change in echocardiogra ms September,January 2020, both LVEF and strain worsening on the later study. Maintained on metoprolol and enalapril. As above, ventricular systolic function would appear to be stable between January 2020 and May 2020. Repeat echo 6 months 5. Lipids. 2018 LDL: 110. Unclear if she was maintained on statin or not at that time. Repeat lipid and liver panel, was hoping to have this available for today's visit, this did not occur. Try to add to blood work to be drawn at [facility] tomorrow, June 01, 2020. Goal LDL 50. 6. Tobacco. She made a promise to her grandson that she would quit on his birthday. It was his birthday yesterday. She says she has stopped smoking. Thank you for allowing me to participate in this patient's care. Sincerely, Abraham Woodall MD, FACC Disposition: We will see her back 6 catherine hs following echo and monitor Time: 20 minutes [id number] interview with patient, 10-minute chart review development completion 1. Nonsustained ventricular tach ycardia ? US, echocardiogram, transt horacic, complete ? event monitor - 14 Days Discussion Note: None recorded.Patient educational handouts: No information available. Plan of Care Reminders Provider Appointments Follow up 07/15/2020 Barbi Smart NP 20 9:40AM ? Follow up on or around Etienne Woodall, 30 12/29/2020 MD ? Cpe 40 01/24/2021 Barbi Sanchez er, INTERNET [employer] BUSINESS PROJECT MANAGER 11:00AM ? Return to on or around Antonio Leon MD Office 04/07/2024 Lab None ? ? recorded. Referral None ? ? recorded. Procedures None ? ? recorded. Surgeries None ? ? recorded. Imaging US, 06/28/2020 [facility] Echocardiogram, Hospital Radiolo gy Transthoracic, (Internal) Complete ? Event 06/28/2020 [facility] Monitor Cardiopulmonary Medications Name Start Date [...] BMI Blood Pressure 5 ft 1 in 50.2 kg 20.9 kg/m2 136/70 mm[Hg] Results Lab Results None recorded. Allergies Code Code System Name Reaction Severity Onset 198049 RxNorm Fosamax ? ? ? 644241 RxNorm Plavix Rash ? ? Notes: No [...] lable ? Appendectomy Information not avai lable 06/09/2020 NM, Myocardial Perfusion Scan, W/ [facility] Radiology (Internal) Stress [address] [place], [place] [id number] (Work Place) 06/28/2020 US, Echocardiogram, Transthoracic, [facility] Radiology (Internal) Complete [address] [place] [address] (Work Place) 06/28/2020 Event Monitor [facility] Cardio pulmonary [address] [place], [place] [address] (Work Place) Vaccine List Vaccine Type influenza, injectable, quadrivalent 03/03/2020 influenza, injectable, quadrivalent, pre servative free 03/11/2018?0.5 mL influenza, trivalent, adjuvanted 03/02/2019?0.5 mL pneumococcal conjugate PCV 13 09/25/2018?0.5 mL Tdap 04/11/2012?0.5 mL zoster live 05/21/2014?0.5 mL zoster recombinant 03/11/2018?0.5 mL 05/12/2018?0.5 mL Social History Tobacco Smoking Status Former Smoker Notes: quit sm oking 06/08/2020, 1/2 PPD Are you currently employed? N Blind [...] Information) Functional Status No Impairment. Past Encounters 06/28/2020 Nonsustained Ventricular Tachycardia Abraham Woodall MD: [address] [place] [address], Ph. 06/09/2020 Abraham Woodall MD: [address] [place] [address], Ph. History of Present Illness None recorded. Review of Systems None recorded. Physical Exam None recorded.
--- OUTSIDE RECORDS SUMMARY | 2020-06-29 08:55 | XMS_ITS | Encounter Summary ---
:1955 Author Care Team Providers Name Role Phone Barbi Smart NP Primary Care Provider [phone] Abraham Woodall MD Establishment Guide [phone] Antonio Leon MD General Surgeon [phone] Reason for Visit Tachycardia REf; N. Bing Assessment and Plan Assessment Note Date: June 08, 2020 Referring: Re: Little Cid 64-year-old woman Problems: 1. Atrial fibrillation. Clinically silent. Paroxysmal/persistent . She describes fibrillation being diagnos ed at least 7 years ago. She was followed by Dr. Louise for this. Maintained on beta-jai, anticoagulat ed with Coumadin initially. Has been transitioned to Eliquis. She underwent vascular surgery procedure March 2020 at [facility]. On , she was in process of [...] occurred during daytime hours. Asymptomatic. HPI: June 09, 2020. She lives with h er and grandson. She is modestly active. Performs domestic chores. She cooks and cleans, occasionally use a vacuum cleaner and dyer. Helps with laundry. She does n ot climb stairs much, stairs were a prob nadir prior to vascular surgery March 2021. She had significant claudication at that time. Some improvement with surgery. She does not exercise on a regular basis. Less than four METS. She is bothered by lower extremity disco mfort. This bothers especially at night. Keeps her awake. No history of chest discomfort. No short ness of breath. Denies PND orthopnea edema. Sleeps on two pillows. Denies palpitations. No presyncope or syncope. No bleeding problems. No snoring history. DATA: Cardiac risk factors: Positive hypertens ion. Positive cholesterol. Positive diabetes. Positive tobacco. Quit yesterday. [id number]-lgzr history. Positive family history, brother had early AL. Social history: Activity profile as abov e. Past medical history: Fibular fracture. Fibrocystic breast disease. GERD. Insomnia. Malignant lymphoma (follicular lymphoma). Review of systems: A 10-point review of systems was obtained. Pertinent positives as described in HPI, all others negative. Allergies: Contrast allergies: Echo: February 22, 2020. [facility]. LVEF 56%. No segmental wall motion abnormalities. [...] pressure (30-40 mmHg total). Cardiac MRI: Stress: [facility]: Holter: Event monitor: May 12-2020. 13 d [...] 2020. Chest x-ray. MediPort tip in the SVC. No acute abnormality. Pulmonary function test: Labs: June 07, 2020. Magnesium normal 1.8. TSH low 0.43. BUN/creatinine 8/0.5, lites normal. February 16, 2020. BUN/creatinine 6/0.5. Electrolytes normal. AST/ALT normal. Hemoglobin/hematocrit 11.2/34.9. WBC, platelet normal. November 04, 2017. Total cholesterol 177, HDL 31, LDL 110, triglycerides 182. Medications: Aspirin 81 mg daily, atorva statin 80 mg daily, apixaban 5 mg twice daily, metoprolol tartrate 50 mg 3 times daily Tramadol, senna, MiraLAX, lansoprazole, gabapentin, calcium, acyclovir Exam: Blood pressure: 136/67 Heart rate: 78 Oxygen saturation: 98% room air Weight: 109.9 pounds General: Patient alert oriented appropri ate conversant. HEENT: JVP 7 cm sitting. Heart: Regular rate and rhythm, S1-S2, n o murmur gallop or rub. Lungs: Clear to auscultation bilaterally . Abdomen: Soft. Nontender. Nondistended. Extremities: No lower extremity edema bi laterally. Assessment: 1. Atrial fibrillation. Present for many years. Clinically daria t. Appears to be paroxysmal/persistent. 2-week event monitor April 2020: No at rial fibrillation. Frequent brief burst SVT. Anticoagulated with apixaban. Maintained on beta-jai. I think current management strategy is r easonable. I think beta-jai could be uptitrated . TSH was a bit low on May 2020 labs. We will repeat with free T4. Consider sleep evaluation. 2. Nonsustained VT. Incidental finding on April 2020 event monitor. Asymptomatic. 4?5 beat duration. Other ventricular ectopy on this monitor : PVCs 1.5% of total beat. Rare couplet. Rare triplet. Complex ventricular ectopy appears to oc cur during daytime hours. As above will uptitrate beta-jai. Smitha cisneros is taking 50 mg 3 times daily (has been doing so for years). Try to increase to 75 mg every morning and q. midday, continue 50 mg every afternoon. We will plan on repeating monitor in the next couple of months after up titration of beta-jai. Of some concern is chemotherapy exposure (R-CHOP with doxorubicin) 2019. Echocardiograms spring/fall 2019 suggesting very mild decrement in LVEF, a bit more significant decrement in strain. Unclear if t his represents anterior study variabilit y or if a trend is suggested with his data. We will repeat echocardiogram. We will obtain stress test (patient is v asculopath). No symptoms currently to suggest ischemia. We will likely pursue cardiac MRI eventu ally. May consider sleep evaluation, no snorin g history. 3. Peripheral vascular disease. As above, extensive. Maintained on aspirin and statin. 4. Chemotherapy exposure 2020. As above, R-CHOP regimen, six cycles. Pl an was to continue maintenance therapy, this postponed until patient can receive coronavirus vaccine. As above, slight change in echocardiogra ms September,January 2020, both LVEF and strain worsening on the later study. She is maintained on beta-jai. I thi nk as part of a cardioprotective regimen she should also be maintained on JEAN PAUL (will initiate enalapril 2.5 mg daily). Perhaps carvedilol would be a better choice of beta-jai however we will plan on continuing metoprolol with up titration as above with consideration for atrial fibrillation and ventricular ectopy. We will repeat echo. 5. Lipids. 2018 LDL: 110. Unclear if she was maintained on statin or not at that time. Repeat lipid and liver panel. Goal LDL 5 0. 6. Tobacco. She made a promise to her grandson that she would quit on his birthday. It was his birthday yesterday. Thank you for allowing me to participate in this patient's care. Sincerely, Abraham Woodall MD, FACC Disposition: See her back in a couple of weeks after stress test Time: 40 minutes [id number] interview with patient, 20-minute chart review development completion Discussion Note: None recorded.Patient educational handouts: No information available. Plan of Care Reminders Provider Appointments Follow up 07/15/2020 Barbi Smart NP 20 9:40AM ? Follow up on or around Etienne susana Romero 30 12/29/2020 MD Jose C ? Cpe 40 01/24/2021 Barbi weems, INTERNATIONAL RELATIONS TEACHER 11:00AM ? Return to on or around [...] BMI Blood Pressure 5 ft 1 in 49.85 kg 20.8 kg/m2 136/67 mm[Hg] Results Lab Results None recorded. Allergies Code Code System Name Reaction Severity Onset 645635 RxNorm Fosamax ? ? ? 322416 RxNorm Plavix Rash ? ? Notes: No [...] avai lable 06/09/2020 NM, Myocardial Perfusion Scan, / [facility] Radiology (Internal) Stress [address] [place] [address] (Work Place) Vaccine List Vaccine Type [...] Information) Functional Status No Impairment. Past Encounters 06/09/2020 Abraham Woodall MD: [address] [facility] [place] [address], Ph. History of Present Illness None recorded. Review of Systems None recorded. Physical Exam None recorded.
[2020-06-29] MEDS: Heparin 500 UNITS/5 ML SYRINGE (09:25)
[2020-06-29 09:38] LABS: Abs Immature Grans 0.02 10^3/uL (0.0-0.06); Absolute Basophil Count 0.03 10^3/uL (0.0-0.2); Absolute Eosinophil Count 0.17 10^3/uL (0.0-0.7); Absolute Lymphocyte Count 1.88 10^3/uL (1.2-3.4); Absolute Monocyte Count 0.63 10^3/uL (0.1-0.8); Absolute Neutrophil Count 6.02 10^3/uL (1.2-6.7); Basophils % 0.3; Eosinophils % 1.9; HCT 37.7 % (36.0-46.0); HGB 12.6 g/dL (11.2-15.7); Immature Grans % 0.2; Lymphocytes % 21.5; MCH 30.6 pg (27.0-33.0); MCHC 33.4 % (32.0-36.0); MCV 91.5 fL (80-95); MPV 9.7 fL (8.0-11.0); Monocytes % 7.2; Neutrophils % 68.9; Nucleated RBC 0 %; Platelet Count 224 10^3/uL (130-400); RBC 4.12 10^6/uL (3.93-5.22); RDW 13.1 % (11.7-14.6); RDW-SD 44.2 fL; WBC 8.75 10^3/uL (4.4-10.8)
[2020-06-29 10:00] LABS: ALT 30 U/L (14-59); AST 14 U/L (15-37); Albumin 3.8 g/dL (3.4-5.0); Alkaline Phosphatase 163 U/L (46-116); Anion Gap 8.5 mmol/L (3-11); BUN 10 mg/dL (7-18); Bilirubin, Total 0.3 mg/dL (0.2-1.0); CO2 28.5 mmol/L (21.0-32.0); CREATININE 0.5 mg/dL (0.55-1.02); Calcium 8.9 mg/dL (8.5-10.1); Chloride 101 mmol/L (98-107); Glucose 114 mg/dL (74-106); LDH 129 U/L (81-234); Potassium 3.7 mmol/L (3.5-5.1); Sodium 138 mmol/L (136-145); Total Protein 6.9 g/dL (6.4-8.2)
[2020-06-29] MEDS: Normal Saline Flush 10 ML SYR 30 ML IVP (11:41)
== END 2020-07-27 23:59 | disposition home or self-care (01) ==
LOC: INF 08:52
PROVIDERS: PCP Registered Nurse; Visit Provider Internal Medicine Hematology & Oncology
DX: C82.00 Follicular lymphoma grade I, unspecified site (principal); Z45.2 Encounter for adjustment and management of vascular access device
CPT/HCPCS: 36591; 80053; 83615; 85025

== ENCOUNTER 2020-09-21 02:58 | Outpatient (RCR) | payer OTHER, SELFPAY ==
[2020-09-21] MEDS: Normal Saline Flush 10 ML SYR IVP (07:23)
[2020-09-21 07:36] LABS: Abs Immature Grans 0.04 10^3/uL (0.0-0.06); Absolute Basophil Count 0.04 10^3/uL (0.0-0.2); Absolute Eosinophil Count 0.13 10^3/uL (0.0-0.7); Absolute Lymphocyte Count 2.02 10^3/uL (1.2-3.4); Absolute Monocyte Count 1.02 10^3/uL (0.1-0.8); Absolute Neutrophil Count 5.43 10^3/uL (1.2-6.7); Basophils % 0.5; Eosinophils % 1.5; HCT 37.6 % (36.0-46.0); HGB 12.7 g/dL (11.2-15.7); Immature Grans % 0.5; Lymphocytes % 23.3; MCH 30.8 pg (27.0-33.0); MCHC 33.8 % (32.0-36.0); MCV 91.3 fL (80-95); MPV 9.4 fL (8.0-11.0); Monocytes % 11.8; Neutrophils % 62.4; Nucleated RBC 0 %; Platelet Count 244 10^3/uL (130-400); RBC 4.12 10^6/uL (3.93-5.22); RDW 14.1 % (11.7-14.6); RDW-SD 47.3 fL; WBC 8.68 10^3/uL (4.4-10.8)
[2020-09-21 07:58] LABS: ALT 29 U/L (14-59); AST 14 U/L (15-37); Alkaline Phosphatase 149 U/L (46-116); Anion Gap 7.3 mmol/L (3-11); BUN 11 mg/dL (7-18); Bilirubin, Total 0.4 mg/dL (0.2-1.0); CO2 29.7 mmol/L (21.0-32.0); CREATININE 0.6 mg/dL (0.55-1.02); Calcium 8.5 mg/dL (8.5-10.1); Chloride 101 mmol/L (98-107); Glucose 102 mg/dL (74-106); LDH 143 U/L (81-234); Potassium 3.9 mmol/L (3.5-5.1); Sodium 138 mmol/L (136-145); Total Protein 6.9 g/dL (6.4-8.2)
== END 2020-09-26 23:59 | disposition home or self-care (01) ==
LOC: INF 02:58
PROVIDERS: PCP Registered Nurse; Visit Provider Internal Medicine Hematology & Oncology
DX: C82.00 Follicular lymphoma grade I, unspecified site (principal); Z45.2 Encounter for adjustment and management of vascular access device
CPT/HCPCS: 36415; 36591; 80053; 83615; 85025

== ENCOUNTER 2020-11-16 02:42 | Outpatient (RCR) | payer OTHER, SELFPAY ==
[2020-11-16] MEDS: Normal Saline Flush 10 ML SYR IVP (09:00)
[2020-11-16 09:11] LABS: Abs Immature Grans 0.07 10^3/uL (0.0-0.06); Absolute Basophil Count 0.05 10^3/uL (0.0-0.2); Absolute Eosinophil Count 0.15 10^3/uL (0.0-0.7); Absolute Monocyte Count 0.78 10^3/uL (0.1-0.8); Absolute Neutrophil Count 7.02 10^3/uL (1.2-6.7); Basophils % 0.5; Eosinophils % 1.5; HCT 39.4 % (36.0-46.0); HGB 13.2 g/dL (11.2-15.7); Immature Grans % 0.7; Lymphocytes % 18.2; MCH 31.1 pg (27.0-33.0); MCHC 33.5 % (32.0-36.0); MCV 92.9 fL (80-95); MPV 9.7 fL (8.0-11.0); Monocytes % 7.9; Neutrophils % 71.2; Nucleated RBC 0 %; Platelet Count 252 10^3/uL (130-400); RBC 4.24 10^6/uL (3.93-5.22); RDW 13.2 % (11.7-14.6); WBC 9.87 10^3/uL (4.4-10.8)
[2020-11-16 09:25] LABS: ALT 32 U/L (14-59); AST 15 U/L (15-37); Alkaline Phosphatase 145 U/L (46-116); BUN 9 mg/dL (7-18); Bilirubin, Total 0.4 mg/dL (0.2-1.0); CREATININE 0.6 mg/dL (0.55-1.02); Calcium 8.8 mg/dL (8.5-10.1); Chloride 101 mmol/L (98-107); Glucose 149 mg/dL (74-106); Potassium 3.9 mmol/L (3.5-5.1); Sodium 136 mmol/L (136-145); Total Protein 7.1 g/dL (6.4-8.2)
[2020-11-16 10:59] LABS: LDH 163 U/L (81-234)
== END 2020-11-26 23:59 | disposition home or self-care (01) ==
LOC: INF 02:42
PROVIDERS: PCP Registered Nurse; Visit Provider Internal Medicine Hematology & Oncology
DX: C83.38 Diffuse large B-cell lymphoma, lymph nodes of multiple sites (principal); Z45.2 Encounter for adjustment and management of vascular access device
CPT/HCPCS: 36591; 80053; 83615; 85025

== ENCOUNTER 2021-03-29 01:15 | Outpatient (RCR) | payer OTHER, SELFPAY ==
[2021-03-29] MEDS: Normal Saline Flush 10 ML SYR IVP (09:22)
[2021-03-29 09:28] LABS: Abs Immature Grans 0.04 10^3/uL (0.0-0.06); Absolute Basophil Count 0.03 10^3/uL (0.0-0.2); Absolute Eosinophil Count 0.11 10^3/uL (0.0-0.7); Absolute Lymphocyte Count 2.01 10^3/uL (1.2-3.4); Absolute Monocyte Count 0.86 10^3/uL (0.1-0.8); Absolute Neutrophil Count 6.87 10^3/uL (1.2-6.7); Basophils % 0.3; Eosinophils % 1.1; HCT 35.6 % (36.0-46.0); HGB 11.6 g/dL (11.2-15.7); Immature Grans % 0.4; Lymphocytes % 20.3; MCH 30.4 pg (27.0-33.0); MCHC 32.6 % (32.0-36.0); MCV 93.2 fL (80-95); Monocytes % 8.7; Neutrophils % 69.2; Nucleated RBC 0 %; Platelet Count 255 10^3/uL (130-400); RBC 3.82 10^6/uL (3.93-5.22); RDW 13.8 % (11.7-14.6); RDW-SD 46.6 fL; WBC 9.92 10^3/uL (4.4-10.8)
[2021-03-29 09:48] LABS: ALT 24 U/L (14-59); AST 15 U/L (15-37); Albumin 3.8 g/dL (3.4-5.0); Alkaline Phosphatase 104 U/L (46-116); Anion Gap 5.9 mmol/L (3-11); BUN 11 mg/dL (7-18); Bilirubin, Total 0.2 mg/dL (0.2-1.0); CO2 29.1 mmol/L (21.0-32.0); CREATININE 0.6 mg/dL (0.55-1.02); Calcium 8.7 mg/dL (8.5-10.1); Chloride 104 mmol/L (98-107); Glucose 108 mg/dL (74-106); LDH 148 U/L (81-234); Potassium 4.1 mmol/L (3.5-5.1); Sodium 139 mmol/L (136-145); Total Protein 6.6 g/dL (6.4-8.2)
== END 2021-04-28 23:59 | disposition home or self-care (01) ==
LOC: INF 01:15
PROVIDERS: PCP Registered Nurse; Visit Provider Internal Medicine Hematology & Oncology
DX: C83.38 Diffuse large B-cell lymphoma, lymph nodes of multiple sites (principal); Z45.2 Encounter for adjustment and management of vascular access device
CPT/HCPCS: 36591; 80053; 83615; 85025

== ENCOUNTER 2021-05-24 01:04 | Outpatient (RCR) | payer OTHER, SELFPAY ==
[2021-05-24] MEDS: Normal Saline Flush 10 ML SYR IVP (08:53)
[2021-05-24 09:02] LABS: Abs Immature Grans 0.04 10^3/uL (0.0-0.06); Absolute Basophil Count 0.05 10^3/uL (0.0-0.2); Absolute Eosinophil Count 0.13 10^3/uL (0.0-0.7); Absolute Lymphocyte Count 2.27 10^3/uL (1.2-3.4); Absolute Monocyte Count 0.79 10^3/uL (0.1-0.8); Absolute Neutrophil Count 5.89 10^3/uL (1.2-6.7); Basophils % 0.5; Eosinophils % 1.4; HCT 37.1 % (36.0-46.0); HGB 11.9 g/dL (11.2-15.7); Immature Grans % 0.4; Lymphocytes % 24.8; MCH 29.2 pg (27.0-33.0); MCHC 32.1 % (32.0-36.0); MCV 91.2 fL (80-95); MPV 10.2 fL (8.0-11.0); Monocytes % 8.6; Neutrophils % 64.3; Nucleated RBC 0 %; Platelet Count 273 10^3/uL (130-400); RBC 4.07 10^6/uL (3.93-5.22); RDW 14.6 % (11.7-14.6); RDW-SD 49.3 fL; WBC 9.17 10^3/uL (4.4-10.8)
[2021-05-24 09:14] LABS: ALT 33 U/L (14-59); AST 20 U/L (15-37); Albumin 3.7 g/dL (3.4-5.0); Alkaline Phosphatase 109 U/L (46-116); Anion Gap 9.3 mmol/L (3-11); BUN 8 mg/dL (7-18); Bilirubin, Total 0.3 mg/dL (0.2-1.0); CO2 26.7 mmol/L (21.0-32.0); CREATININE 0.6 mg/dL (0.55-1.02); Calcium 8.6 mg/dL (8.5-10.1); Chloride 103 mmol/L (98-107); Glucose 105 mg/dL (74-106); LDH 160 U/L (81-234); Sodium 139 mmol/L (136-145); Total Protein 6.9 g/dL (6.4-8.2)
== END 2021-05-29 23:59 | disposition home or self-care (01) ==
LOC: INF 01:04
PROVIDERS: PCP Registered Nurse; Visit Provider Internal Medicine Hematology & Oncology
DX: C83.38 Diffuse large B-cell lymphoma, lymph nodes of multiple sites (principal); Z45.2 Encounter for adjustment and management of vascular access device
CPT/HCPCS: 36591; 80053; 83615; 85025

== ENCOUNTER 2021-07-19 01:28 | Outpatient (RCR) | payer OTHER, SELFPAY ==
[2021-07-19] MEDS: Normal Saline Flush 10 ML SYR IVP (10:54)
[2021-07-19 11:02] LABS: Abs Immature Grans 0.05 10^3/uL (0.0-0.06); Absolute Basophil Count 0.04 10^3/uL (0.0-0.2); Absolute Eosinophil Count 0.11 10^3/uL (0.0-0.7); Absolute Lymphocyte Count 2.04 10^3/uL (1.2-3.4); Absolute Monocyte Count 0.82 10^3/uL (0.1-0.8); Absolute Neutrophil Count 7.57 10^3/uL (1.2-6.7); Basophils % 0.4; HCT 35.9 % (36.0-46.0); HGB 11.9 g/dL (11.2-15.7); Immature Grans % 0.5; Lymphocytes % 19.2; MCH 30.1 pg (27.0-33.0); MCHC 33.1 % (32.0-36.0); MCV 90.7 fL (80-95); MPV 10.2 fL (8.0-11.0); Monocytes % 7.7; Neutrophils % 71.2; Nucleated RBC 0 %; Platelet Count 244 10^3/uL (130-400); RBC 3.96 10^6/uL (3.93-5.22); RDW 14.7 % (11.7-14.6); RDW-SD 49.4 fL; WBC 10.63 10^3/uL (4.4-10.8)
[2021-07-19 11:28] LABS: ALT 24 U/L (14-59); AST 15 U/L (15-37); Albumin 3.9 g/dL (3.4-5.0); Alkaline Phosphatase 100 U/L (46-116); Anion Gap 7.4 mmol/L (3-11); BUN 9 mg/dL (7-18); Bilirubin, Total 0.3 mg/dL (0.2-1.0); CO2 28.6 mmol/L (21.0-32.0); CREATININE 0.6 mg/dL (0.55-1.02); Calcium 8.6 mg/dL (8.5-10.1); Chloride 103 mmol/L (98-107); Glucose 106 mg/dL (74-106); LDH 144 U/L (81-234); Potassium 3.9 mmol/L (3.5-5.1); Sodium 139 mmol/L (136-145); Total Protein 6.8 g/dL (6.4-8.2)
== END 2021-07-27 23:59 | disposition home or self-care (01) ==
LOC: INF 01:28
PROVIDERS: PCP Registered Nurse; Visit Provider Internal Medicine Hematology & Oncology
DX: Z45.2 Encounter for adjustment and management of vascular access device (principal); C83.38 Diffuse large B-cell lymphoma, lymph nodes of multiple sites
CPT/HCPCS: 36591; 80053; 83615; 85025

== ENCOUNTER 2021-09-13 02:00 | Outpatient (RCR) | payer OTHER, SELFPAY ==
[2021-09-13 10:45] LABS: Abs Immature Grans 0.04 10^3/uL (0.0-0.06); Absolute Basophil Count 0.04 10^3/uL (0.0-0.2); Absolute Lymphocyte Count 2.32 10^3/uL (1.2-3.4); Absolute Monocyte Count 0.87 10^3/uL (0.1-0.8); Absolute Neutrophil Count 9.42 10^3/uL (1.2-6.7); Basophils % 0.3; Eosinophils % 0.9; HCT 38.4 % (36.0-46.0); HGB 12.5 g/dL (11.2-15.7); Immature Grans % 0.3; Lymphocytes % 18.1; MCH 28.9 pg (27.0-33.0); MCHC 32.6 % (32.0-36.0); MCV 89 fL (80-95); MPV 10.3 fL (8.0-11.0); Monocytes % 6.8; Neutrophils % 73.6; Platelet Count 273 10^3/uL (130-400); RBC 4.33 10^6/uL (3.93-5.22); RDW 14.2 % (11.7-14.6); RDW-SD 46.1 fL
[2021-09-13 10:46] LABS: Absolute Eosinophil Count 0.12 10^3/uL (0.0-0.7)
[2021-09-13 10:59] LABS: ALT 23 U/L (14-59); AST 16 U/L (15-37); Albumin 3.7 g/dL (3.4-5.0); Alkaline Phosphatase 104 U/L (46-116); Anion Gap 7.8 mmol/L (3-11); BUN 8 mg/dL (7-18); Bilirubin, Total 0.4 mg/dL (0.2-1.0); CO2 27.2 mmol/L (21.0-32.0); CREATININE 0.7 mg/dL (0.55-1.02); Calcium 8.6 mg/dL (8.5-10.1); Chloride 101 mmol/L (98-107); Glucose 113 mg/dL (74-106); LDH 149 U/L (81-234); Potassium 3.9 mmol/L (3.5-5.1); Sodium 136 mmol/L (136-145); Total Protein 6.7 g/dL (6.4-8.2)
[2021-09-13] MEDS: Normal Saline Flush 10 ML SYR IVP (11:00)
== END 2021-09-26 23:59 | disposition home or self-care (01) ==
LOC: INF 02:00
PROVIDERS: PCP Registered Nurse; Visit Provider Internal Medicine Hematology & Oncology
DX: C83.38 Diffuse large B-cell lymphoma, lymph nodes of multiple sites (principal); Z45.2 Encounter for adjustment and management of vascular access device
CPT/HCPCS: 36591; 80053; 83615; 85025

== ENCOUNTER 2021-11-15 01:06 | Outpatient (RCR) | payer OTHER, SELFPAY ==
[2021-11-15] MEDS: Normal Saline Flush 10 ML SYR IVP (10:58)
[2021-11-15 11:06] LABS: Abs Immature Grans 0.03 10^3/uL (0.0-0.06); Absolute Basophil Count 0.04 10^3/uL (0.0-0.2); Absolute Eosinophil Count 0.11 10^3/uL (0.0-0.7); Absolute Lymphocyte Count 2.34 10^3/uL (1.2-3.4); Absolute Neutrophil Count 5.05 10^3/uL (1.2-6.7); Basophils % 0.5; Eosinophils % 1.3; HCT 36.5 % (36.0-46.0); HGB 12.2 g/dL (11.2-15.7); Immature Grans % 0.4; Lymphocytes % 28.6; MCH 29.5 pg (27.0-33.0); MCHC 33.4 % (32.0-36.0); MCV 88 fL (80-95); MPV 10.4 fL (8.0-11.0); Monocytes % 7.3; Neutrophils % 61.9; Platelet Count 243 10^3/uL (130-400); RBC 4.13 10^6/uL (3.93-5.22); RDW 14.6 % (11.7-14.6); RDW-SD 46.9 fL; WBC 8.17 10^3/uL (4.4-10.8)
[2021-11-15 11:26] LABS: ALT 27 U/L (14-59); AST 16 U/L (15-37); Albumin 3.7 g/dL (3.4-5.0); Alkaline Phosphatase 87 U/L (46-116); Anion Gap 5.5 mmol/L (3-11); BUN 9 mg/dL (7-18); Bilirubin, Total 0.3 mg/dL (0.2-1.0); CO2 29.5 mmol/L (21.0-32.0); CREATININE 0.6 mg/dL (0.55-1.02); Calcium 8.7 mg/dL (8.5-10.1); Chloride 102 mmol/L (98-107); Glucose 113 mg/dL (74-106); LDH 159 U/L (81-234); Potassium 3.9 mmol/L (3.5-5.1); Sodium 137 mmol/L (136-145); Total Protein 6.5 g/dL (6.4-8.2)
== END 2021-11-26 23:59 | disposition home or self-care (01) ==
LOC: INF 01:06
PROVIDERS: PCP Registered Nurse; Visit Provider Internal Medicine Hematology & Oncology
DX: C83.38 Diffuse large B-cell lymphoma, lymph nodes of multiple sites (principal); Z45.2 Encounter for adjustment and management of vascular access device
CPT/HCPCS: 36591; 80053; 83615; 85025

== ENCOUNTER 2022-01-19 00:38 | Outpatient (RCR) | payer OTHER, SELFPAY ==
[2022-01-10 09:39] LABS: Abs Immature Grans 0.04 10^3/uL (0.0-0.06); Absolute Basophil Count 0.03 10^3/uL (0.0-0.2); Absolute Eosinophil Count 0.15 10^3/uL (0.0-0.7); Absolute Lymphocyte Count 2.14 10^3/uL (1.2-3.4); Absolute Monocyte Count 0.79 10^3/uL (0.1-0.8); Absolute Neutrophil Count 7.14 10^3/uL (1.2-6.7); Basophils % 0.3; Eosinophils % 1.5; HCT 37.4 % (36.0-46.0); HGB 12.4 g/dL (11.2-15.7); Immature Grans % 0.4; Lymphocytes % 20.8; MCH 29.3 pg (27.0-33.0); MCHC 33.2 % (32.0-36.0); MCV 88 fL (80-95); MPV 10.2 fL (8.0-11.0); Monocytes % 7.7; Neutrophils % 69.3; Platelet Count 239 10^3/uL (130-400); RBC 4.23 10^6/uL (3.93-5.22); RDW-SD 49.1 fL; WBC 10.29 10^3/uL (4.4-10.8)
[2022-01-10] MEDS: Normal Saline Flush 10 ML SYR IVP (09:42)
[2022-01-10 10:12] LABS: ALT 19 U/L (14-59); AST 16 U/L (15-37); Albumin 3.8 g/dL (3.4-5.0); Alkaline Phosphatase 85 U/L (46-116); Anion Gap 5.5 mmol/L (3-11); BUN 6 mg/dL (7-18); Bilirubin, Total 0.4 mg/dL (0.2-1.0); CO2 29.5 mmol/L (21.0-32.0); CREATININE 0.5 mg/dL (0.55-1.02); Calcium 8.6 mg/dL (8.5-10.1); Chloride 102 mmol/L (98-107); Glucose 112 mg/dL (74-106); LDH 151 U/L (81-234); Sodium 137 mmol/L (136-145); Total Protein 6.8 g/dL (6.4-8.2)
== END 2022-01-26 23:59 | disposition home or self-care (01) ==
LOC: INF 00:38
PROVIDERS: PCP Registered Nurse; Visit Provider Internal Medicine Hematology & Oncology
DX: C83.38 Diffuse large B-cell lymphoma, lymph nodes of multiple sites (principal); Z29.8 Encounter for other specified prophylactic measures; Z45.2 Encounter for adjustment and management of vascular access device
CPT/HCPCS: 36591; 80053; 96372; Q0221; 83615; 85025

== ENCOUNTER 2022-05-16 01:57 | Outpatient (RCR) | payer OTHER, SELFPAY ==
[2022-05-16] MEDS: Normal Saline Flush 10 ML SYR IVP (09:31)
[2022-05-16 09:36] LABS: Abs Immature Grans 0.04 10^3/uL (0.0-0.06); Absolute Basophil Count 0.05 10^3/uL (0.0-0.2); Absolute Eosinophil Count 0.13 10^3/uL (0.0-0.7); Absolute Lymphocyte Count 2.36 10^3/uL (1.2-3.4); Absolute Neutrophil Count 7.25 10^3/uL (1.2-6.7); Basophils % 0.5; Eosinophils % 1.2; HCT 37.1 % (36.0-46.0); HGB 12.3 g/dL (11.2-15.7); Immature Grans % 0.4; MCH 29.2 pg (27.0-33.0); MCHC 33.2 % (32.0-36.0); MCV 88 fL (80-95); MPV 10.4 fL (8.0-11.0); Monocytes % 8.4; Neutrophils % 67.5; Platelet Count 282 10^3/uL (130-400); RBC 4.21 10^6/uL (3.93-5.22); RDW-SD 48.6 fL; WBC 10.73 10^3/uL (4.4-10.8)
[2022-05-16 09:52] LABS: ALT 27 U/L (14-59); AST 19 U/L (15-37); Albumin 3.8 g/dL (3.4-5.0); Alkaline Phosphatase 84 U/L (46-116); Anion Gap 0.5 mmol/L (3-11); BUN 12 mg/dL (7-18); Bilirubin, Total 0.3 mg/dL (0.2-1.0); CO2 27.5 mmol/L (21.0-32.0); CREATININE 0.6 mg/dL (0.55-1.02); Calcium 9.1 mg/dL (8.5-10.1); Chloride 101 mmol/L (98-107); Estimated GFR 97.71 (mL/min/1.73m2); Glucose 106 mg/dL (74-106); LDH 143 U/L (81-234); Potassium 3.9 mmol/L (3.5-5.1); Sodium 129 mmol/L (136-145); Total Protein 6.7 g/dL (6.4-8.2)
== END 2022-05-29 23:59 | disposition home or self-care (01) ==
LOC: INF 01:57
PROVIDERS: PCP Registered Nurse; Visit Provider Internal Medicine Hematology & Oncology
DX: C83.38 Diffuse large B-cell lymphoma, lymph nodes of multiple sites (principal); Z45.2 Encounter for adjustment and management of vascular access device
CPT/HCPCS: 36591; 80053; 83615; 85025

== ENCOUNTER 2022-07-11 02:05 | Outpatient (RCR) | payer OTHER, SELFPAY ==
[2022-07-11] MEDS: Normal Saline Flush 10 ML SYR IVP (09:31)
[2022-07-11 09:43] LABS: Abs Immature Grans 0.04 10^3/uL (0.0-0.06); Absolute Basophil Count 0.05 10^3/uL (0.0-0.2); Absolute Monocyte Count 0.88 10^3/uL (0.1-0.8); Basophils % 0.4; Eosinophils % 0.7; HGB 12.2 g/dL (11.2-15.7); Immature Grans % 0.3; Lymphocytes % 17.2; MCH 28.1 pg (27.0-33.0); MCV 85 fL (80-95); MPV 10.3 fL (8.0-11.0); Monocytes % 7.3; Neutrophils % 74.1; Platelet Count 289 10^3/uL (130-400); RBC 4.34 10^6/uL (3.93-5.22); RDW 14.1 % (11.7-14.6); RDW-SD 43.7 fL; WBC 12.01 10^3/uL (4.4-10.8)
[2022-07-11 09:45] LABS: Absolute Eosinophil Count 0.08 10^3/uL (0.0-0.7); Absolute Lymphocyte Count 2.07 10^3/uL (1.2-3.4)
[2022-07-11 10:04] LABS: ALT 32 U/L (14-59); AST 14 U/L (15-37); Albumin 3.8 g/dL (3.4-5.0); Alkaline Phosphatase 73 U/L (46-116); Anion Gap 7.1 mmol/L (3-11); BUN 14 mg/dL (7-18); Bilirubin, Total 0.3 mg/dL (0.2-1.0); CO2 27.9 mmol/L (21.0-32.0); CREATININE 0.6 mg/dL (0.55-1.02); Calcium 8.9 mg/dL (8.5-10.1); Chloride 100 mmol/L (98-107); Estimated GFR 97.71 (mL/min/1.73m2); Glucose 105 mg/dL (74-106); LDH 138 U/L (81-234); Potassium 4.1 mmol/L (3.5-5.1); Sodium 135 mmol/L (136-145); Total Protein 6.6 g/dL (6.4-8.2)
== END 2022-07-27 23:59 | disposition home or self-care (01) ==
LOC: INF 02:05
PROVIDERS: PCP Registered Nurse; Visit Provider Internal Medicine Hematology & Oncology
DX: Z45.2 Encounter for adjustment and management of vascular access device (principal); C83.38 Diffuse large B-cell lymphoma, lymph nodes of multiple sites
CPT/HCPCS: 36591; 80053; 83615; 85025

== ENCOUNTER 2022-09-05 01:56 | Outpatient (RCR) | payer OTHER, SELFPAY ==
[2022-09-05] MEDS: Normal Saline Flush 10 ML SYR IVP (07:31)
[2022-09-05 07:54] LABS: Abs Immature Grans 0.05 10^3/uL (0.0-0.06); Absolute Eosinophil Count 0.15 10^3/uL (0.0-0.7); Absolute Lymphocyte Count 2.24 10^3/uL (1.2-3.4); Basophils % 0.4; Eosinophils % 1.1; HCT 38.2 % (36.0-46.0); HGB 12.8 g/dL (11.2-15.7); Immature Grans % 0.4; Lymphocytes % 16.5; MCH 27.9 pg (27.0-33.0); MCHC 33.5 % (32.0-36.0); MCV 83 fL (80-95); MPV 10.2 fL (8.0-11.0); Neutrophils % 73.6; Platelet Count 291 10^3/uL (130-400); RBC 4.58 10^6/uL (3.93-5.22); RDW-SD 48.8 fL; WBC 13.56 10^3/uL (4.4-10.8)
[2022-09-05 07:55] LABS: Absolute Basophil Count 0.05 10^3/uL (0.0-0.2); Absolute Monocyte Count 1.08 10^3/uL (0.1-0.8); Absolute Neutrophil Count 9.98 10^3/uL (1.2-6.7)
[2022-09-05 08:09] LABS: ALT 29 U/L (14-59); AST 18 U/L (15-37); Albumin 3.8 g/dL (3.4-5.0); Alkaline Phosphatase 86 U/L (46-116); BUN 9 mg/dL (7-18); Bilirubin, Total 0.3 mg/dL (0.2-1.0); CREATININE 0.5 mg/dL (0.55-1.02); Calcium 9.1 mg/dL (8.5-10.1); Chloride 101 mmol/L (98-107); Estimated GFR 101.46 (mL/min/1.73m2); Glucose 98 mg/dL (74-106); LDH 141 U/L (81-234); Sodium 135 mmol/L (136-145); Total Protein 6.9 g/dL (6.4-8.2)
== END 2022-09-26 23:59 | disposition home or self-care (01) ==
LOC: INF 01:56
PROVIDERS: PCP Registered Nurse; Visit Provider Internal Medicine Hematology & Oncology
DX: C83.38 Diffuse large B-cell lymphoma, lymph nodes of multiple sites (principal); Z45.2 Encounter for adjustment and management of vascular access device
CPT/HCPCS: 36591; 80053; 83615; 85025